=== PATIENT | female | born 1950 | race Caucasian/White ===

== ENCOUNTER 2018-07-19 11:29 | Inpatient (IN) | payer OTHER ==
[~2018-07-19] VITALS: Ht 172.7 cm; Wt 74.6 kg
[2018-07-19] VITALS (15 sets, daily range): BP systolic 125–155; BP diastolic 74–89; Ht 172.7 cm; Wt 74.6 kg
--- NOTE | ~2018-07-19 | HEMODYNAMI ---
PATIENT:GREGG ESPINO MEDICAL RECORD: [id number] : 52 [facility] TigreT03RUST# [id number] ADMISSION DATE: 07/19/18 Generatedon:07/19/201816:35 Patient name: GREGG ESPINO Patient #: [id number] SSN: DO B: 1950 Date of study: 07/19/2018 Page: Of Hemodynamic Procedure Report Patient Data Patient Demographics Procedure consent was obtained First Name: GREGG Gender: Female Last Name: SRINIVAS : 1950 [facility] Initial: GERDA Age: 67 year(s) Patient #: [id number] Race: Unknown Additional ID: [id number] Contact details Address: [address] [place] [address] State: [place] City: [place] Zip code: [address] Past Medical History Allergies: No known allergies Admission Admission Data Admission Date: 07/19/2018 Admission Time: 13:09 Admit Source: Transfer acute care facility Room #: D.T03 Weight (lbs.): 170.2 Weight (kg.): 77.2 Lab Results Lab Result Date: 07/19/2018 Lab Result Time: 12:10 Biochemistry Name Units Result Min Max BUN mg/dl 16 --(---*)-- 7 18 Creatinine mg/dl 0.8 --(-*--)-- 0.6 1.3 Troponin l ng/ml 21.4 --(----)-* 0 0.06 CBC Name Units Result Min Max Hematocrit % 40.3 -*(----)-- 42 54 Hemoglobin g/dl 13.5 --(*---)-- 13.5 17.5 Procedure Procedure Types Cath Procedure Diagnostic Procedure [facility] w/Coronaries PCI Procedure Coronary Stent Coronary Stent Initial Procedure Description Procedure Date Procedure Date: 07/19/2018 Procedure Start Time: 15:46 Procedure End Time: 15:58 Procedure Staff Name Function Laura Navarro RT Monitor Hector Romeo MD Performing Physician Mahamed Ludwig RT Scrub [facility] RT Monitor Rose Mary Mccann RN Nurse Procedure Data Cath Procedure Fluoroscopy Diagnostic fluoroscopy Total fluoroscopy Time: 2.8 time: 2.8 min min Diagnostic fluoroscopy Total fluoroscopy dose: dose: 171.83 mGy 171.83 mGy Contrast Material Contrast Material Type Amount (ml) Isovue 300 58 Entry Location Entry Primary Successful Side Size Upsize Upsize Entry Closure Rico ccessful Closure Location (Fr) 1 (Fr) 2 (Fr) Remarks Device Remarks Radial Right 6 Fr Mechanical artery Short Compression Estimated blood loss: 10 ml Diagnostic catheters Device Type Used For End Catheter Placement DIAGNOSTIC [place] 110cm 5 Procedure Fr catheter ([id number]) Procedure Complications No complications Procedure Medications Medication Administration Route Dosage 0.9% NaCl I.V. 100 ml/hr Oxygen etCO2 Nasal cannula 2 l/min Lidocaine 2% added to field 20 Heparin Flush Bag added to field 2 bags (1000units/500ml NS) Radial Cocktail added to field 1 syringe (Verapomil 2mg/Nitro 400mcg/Heparin 1500units) Versed I.V. 2 mg Fentanyl I.V. 50 mcg Versed I.V. 1 mg Fentanyl I.V. 25 mcg Heparin Bolus I.V. 2000 units Hemodynamics Rest HGB: 13.5 (g/dl) Heart Rate: 83 (bpm) Snapshots Pre Cath Intra NCS Post Cath Vital Signs Time Heart Resp SPO2 etCO2 NIBP (mmHg) Rhythm Pain Sedation Rate (ipm) (%) (mmHg) Status Level (bpm) 15:40:34 82 10 100 0 133/76(103) NSR 0 (11) 10(A) , No pain 15:44:48 82 16 97 0.7 109/71(87) NSR 0 (11) 10(A) , No pain 15:49:06 85 15 98 0 71/40(55) NSR 0 (11) 10(A) , No pain 15:53:12 82 12 98 1.5 77/48(69) NSR 0 (11) 9(A) , No pain 15:57:18 85 11 99 2.2 90/53(68) NSR 0 (11) 10(A) , No pain 16:15:17 85 2 99 1.5 No Cuff NSR 0 (11) 10(A) , No pain Medications Time Medication Route Dose Verified Delivered Reason Not es Effectiveness by by 15:39:44 0.9% NaCl I.V. 100 Hector Rose Mary used for ml/hr Agueda Mccann supervisor [employer] 15:39:51 Oxygen etCO2 2 l/min Hector Rose Mary used for Nasal Agueda Mccann procedure cannula RN 15:39:57 Lidocaine 2% added 20ml Hector Young used for to vial Agueda Romeo MD procedure field 15:40:04 Heparin Flush added 2 bags Hector Young used for Bag to Agueda Romeo MD procedure (1000units/500ml field NS) 15:40:09 Radial Cocktail added 1 Hector Hector used for (Verapomil to syringe Agueda Romeo MD procedure 2mg/Nitro field 400mcg/Hepari 15:45:26 Versed I.V. 2 mg Hector Rose Mary for sedation Agueda Mccann RN 15:45:45 Fentanyl I.V. 50 mcg Hector Rose Mary for sedation Agueda Mccann RN 15:49:15 Versed I.V. 1 mg Hector Rose Mary for sedation Agueda Mccann RN 15:49:21 Fentanyl I.V. 25 mcg Hector Rose Mary for sedation Agueda Mccann RN 15:50:54 Heparin Bolus I.V. 2000 Hector Rose Mary for sami ified units Agueda Mccann anticoagulation with Dr. ALEJANDRO Romeo Procedure Log Time Note 15:06:58 Informed consent obtained and on chart 15:07:03 Admit Source: Transfer acute care facility 15:07:09 Diagnostic Cath status Elective 15:07:17 Time tracking: Regular hours (M-F 7:00 - 5:00) 15:07:20 Plan of Care:Hemodynamics will remain stable., Cardiac rhythm will remain stable., Comfort level will be maintained., Respiratory function will remain adequate., Patient/ family verbilizes understanding of procedure., Procedure tolerated without complication., Recovers from procedure without complications.. 15:07:24 H&P Date Dictated: 07/19/2018 Within 30 days and on chart.. 15:08:01 Lab Result : Hemoglobin 13.5 g/dl 15:08:01 Lab Result : Hematocrit 40.3 % 15:08:01 Lab Result : BUN 16 mg/dl 15:08:01 Lab Result : Creatinine 0.8 mg/dl 15:08:02 Lab results completed and on chart. 15:08:10 Patient Weight : 170.2 lbs 15:08:39 Lab Result : Troponin l 21.4 ng/ml 15:17:55 Rose Mary Mccann RN sent for patient. Start room use. 15:28:59 Patient received from ED to CCL 3 Alert and oriented. Tansferred to table in Supine position. 15:29:00 Warm blankets applied, and nena hugger turned on for patient comfort. 15:29:01 Correct patient and procedure confirmed by team. 15:29:02 ECG and BP/O2 sat monitors applied to patient. 15:29:03 Pre-procedure instructions explained to patient. 15:29:04 Pre-op teaching completed and patient verbalized understanding. 15:29:05 Family in waiting room. 15:29:08 Patient NPO since Breakfast. 15:29:15 Patient allergic to No known allergies 15:39:17 Vital chart was started 15:39:23 Rhythm: sinus rhythm 15:39:25 Full Disclosure recording started 15:39:27 Patient diabetic? No. 15:39:29 Patient not . Patient has had hysterectomy. 15:39:31 Previous problem with sedation/anesthesia? No ? 15:39:33 Snore? Yes 15:39:34 Sleep apnea? No 15:39:35 Deviated septum? No 15:39:36 Opens mouth fully? Yes 15:39:37 Sticks out tongue? Yes 15:39:39 Airway obstruction? No ? 15:39:43 Dentures? Yes out 15:39:44 0.9% NaCl 100 ml/hr I.V. was administered by Rose Mary Mccann RN; used for procedure; 15:39:46 Modified Issac's test Ulnar < 7 seconds 15:39:48 Patient pain scale 0/10 ?. 15:39:51 Oxygen 2 l/min etCO2 Nasal cannula was administered by Rose Mary Mccann RN; used for procedure; 15:39:55 IV patent on arrival in right antecubital with 0.9% NaCl at [facility]. 15:39:57 Lidocaine 2% 20ml vial added to field was administered by Hector Romeo MD; used for procedure; 15:40:00 Alarms reviewed by R. N. 15:40:00 Right Radial & Right Groin area was prepped with chlora-prep and draped in sterile fashion 15:40:01 Sharps counted by scrub and verified by R.N. 15:40:04 Heparin Flush Bag (1000units/500ml NS) 2 bags added to field was administered by Hector Romeo MD; used for procedure; 15:40:06 Baseline sample Acquired. 15:40:09 Radial Cocktail (Verapomil 2mg/Nitro 400mcg/Heparin 1500units) 1 syringe added to field was administered by Hector Romeo MD; used for procedure; 15:40:24 Use device set Radial Dx or PCI 15:40:25 ACIST Syringe (24176) opened to sterile field. 15:40:26 Bag Decanter (2001S) opened to sterile field. 15:40:27 ACIST Manifold (31983) opened to sterile field. 15:40:27 ACIST Hand Control (46638) opened to sterile field. 15:40:28 Tegaderm 4 x 4 (1626W) opened to sterile field. 15:40:29 DIAGNOSTIC WIRE .035 260cm J wire (050383) opened to sterile field. 15:40:29 Medline Cath Pack ([id number]) opened to sterile field. 15:40:30 MBrace Wrist Support ([id number]) opened to sterile field. 15:40:31 SHEATH 6FR Slender (74-2480) opened to sterile field. 15:43:52 Final Timeout: patient, procedure, and site verified with staff and physician. All members of the team are in agreement. 15:43:52 --------ALL STOP TIME OUT------ 15:43:55 Right Radial & Right Groin site verified by team. 15:43:59 Maximum allowable Isovue 300 dose 300ml. Physician notified. (300ml for normal creatinines. For patients with creatinine of 1.7 or higher multiply weight(kg) x 5 divided by creatinine.) 15:44:03 Fire Safety Assessment: A--An alcohol-based skin anteseptic being used preoperatively., C--Open oxygen or nitrous oxide is being used., D--An ESU, laser, or fiber-optic light is being used. 15:44:07 Physical assessment completed. ASA score P 2 - A patient with mild systemic disease as per Hector Romeo MD. 15:44:10 Sedation plan: IV Moderate Sedation Medication:Versed, Fentanyl 15:45:26 Versed 2 mg I.V. was administered by Rose Mary Mccann RN; for sedation; 15:45:45 Fentanyl 50 mcg I.V. was administered by Rose Mary Mccann RN; for sedation; 15:46:02 Procedure started. 15:46:04 Zero performed for pressure channel P1 15:46:32 Local anesthetic to right radial artery with Lidocaine 2% by Hector Romeo MD.INITIAL ACCESS ONLY 15:47:27 A 6 Fr Short sheath was inserted into the Right Radial artery 15:47:53 A DIAGNOSTIC [place] 110cm 5 Fr catheter ([id number]) was advanced over the wire and used for Procedure. 15:48:04 LV gram done using JEWELL 15:48:08 Injector settings: Ml/sec: 7, Volume: 15, 15:49:15 Versed 1 mg I.V. was administered by Rose Mary Mccann RN; for sedation; 15:49:21 Fentanyl 25 mcg I.V. was administered by Rose Mary Mccann RN; for sedation; 15:49:22 EF : 50 % 15:50:01 YENY assess EtCO2 d/t monitor malfunction 15:50:11 LCA angiography performed. 15:50:12 RCA angiography performed. 15:50:38 Catheter exchanged over wire. 15:50:45 GUIDE 6FR XBLAD 4.0 catheter ([id number]) opened to sterile field. 15:50:54 Heparin Bolus 2000 units I.V. was administered by Rose Mary Mccann RN; for anticoagulation; verified with Dr. Romeo 15:51:22 6 Fr XBLAD 4 guide catheter was inserted over the wire 15:52:53 CHOICE ES 182 wire advanced. 15:54:03 Place stent Inflation Number: 1 A INTEGRITY RX 3.0 x 18 stent ([id number]) was prepped and advanced across the Mid LAD. The stent was deployed at 15 JAM for 0:10 (min:sec). 15:54:24 Stent catheter was removed intact over wire. 15:54:25 Wire removed. 15:54:27 Guide catheter removed. 15:54:42 TR BAND Standard ([id number]) opened to sterile field. 15:54:57 Procedure ended.(Physican Out) 15:55:10 Sheath removed intact; hemostasis achieved with Mechanical Compression to the Right Radial artery. 15:55:24 Fluoroscopy time 02.80 minutes. 15:55:34 Fluoroscopy dose: 171.83 mGy 15:55:34 Flurop Dose total: 171.83 15:55:52 Contrast amount:Isovue 300 58ml. 15:55:53 Sharps counted by scrub and verified by R.N. 15:55:55 TR band inflated with 10cc of air. 15:56:00 Post-procedure physical assessment completed. ASA score P 2 - A patient with mild systemic disease as per Hector Romeo MD. 15:56:03 Post procedure rhythm: sinus rhythm 15:56:05 Estimated blood loss: 10 ml 15:56:06 Post procedure instruction explained to patient.Patient verbalizes understanding. 15:56:11 Patient needs reinforcement of post procedure teaching. 15:56:43 Procedure type changed to Cath procedure, Diagnostic procedure, LHC, LHC w/Coronaries, PCI procedure, Coronary Stent, Coronary Stent Initial 15:58:17 Procedure and supply charges have been captured, reviewed, submitted and are correct. 15:58:19 Procedure Complication : No complications 15:58:21 Vital chart was stopped 15:58:22 See physician's report for complete and final results. 15:58:24 Report given to ICU. 15:58:26 Patient transfered to ICU with Bed. 15:58:28 Procedure ended. 16:15:47 Pt. being held and monitored on table due to ICU bed not available at this time. 16:35:23 End room use (Document Last) Intervention Summary Intervention Notes Time ActionType Lesion and Equipment Action# Pressure Duration Attributes Used 15:54:03 Place stent Mid LAD INTEGRITY RX 1 15 00:10 3.0 x 18 stent ([id number]) Device Usage Item Name Manufacture Quantity Catalog Hospital Part Current Minima l Lot# / Number Charge Number Stock Stock Serial# Code ACIST Acist 1 55263 826729 066801 441110 20 Syringe Medical (47436) Systems Inc Bag Decanter Microtek 1 239006 40828 177849 5 () Medical Inc. ACIST Hand Acist 1 11306 362341 758207 286912 5 Control Medical (89518) Systems Inc ACIST Acist 1 03032 090195 696472 495047 5 Manifold Medical (88646) Systems Inc Tegaderm 4 x 3M 1 1626W 928987 733278 675574 5 4 (1626W) Medline Cath Medline 1 [id number] 154625 85747 766767 5 Pack ([id number]) DIAGNOSTIC St Nikolai 1 534090 977820 609569 204560 30 WIRE .035 260cm J wire (431348) MBrace Wrist Advanced 1 140-0250-00 270713 06964 594588 5 Support Vascular ([id number]) Dynamics SHEATH 6FR Terumo 1 [id number] 651562 385506 805093 5 Slender (80-1060) DIAGNOSTIC Terumo 1 40-5013 760570 539420 436380 5 [place] 110cm 5 Fr catheter (510165) GUIDE 6FR Cardinal 1 11154748 352713 663012 467167 3 XBLAD 4.0 Health catheter (40875702) INTEGRITY RX Medtronic 1 [id number] 500681 396255 464732 5 [id number] 3.0 x 18 stent ([id number]) TR BAND Terumo 1 [id number] 598044 533058 094647 40 Standard ([id number]) Signature Audit [place] [employer] Time Signature Unsigned Intra-Procedure 07/19/2018 Amirah Ludwig RT(R) 4:00:18 PM RT(R) 07/19/2018 4:13:45 PM Intra-Procedure 07/19/2018 Mahamed Ludwig 4:35:34 PM RT(R) Signatures Monitor : Laura Signature : Counts RT Date : Time : Monitor : Amirah Johnson Signature : RT Date : Time : [place] [id number] [place] [address]
[2018-07-19] MEDS ORDERED: SYNTHROID25 MCG PO (11:33)
[2018-07-19] MEDS ORDERED: ATIVAN0.5 MG PO (11:33)
[2018-07-19] MEDS ORDERED: JANUVIA25 MG PO (11:33)
[2018-07-19] MEDS ORDERED: GLUCOPHAGE500 MG PO (11:33)
[2018-07-19] MEDS ORDERED: LISINOPRIL (11:34)
[2018-07-19 12:16] LABS: BASOPHILS 0.2 % (0-2); EOSINOPHILS 0.6 % (0-7); HEMATOCRIT 40.3 % (36.0-48.0); HEMOGLOBIN 13.5 g/dL (12-16); IMMATURE GRANULOCYTES 0.3 % (0-5); LYMPHOCYTES 17.1 % (15-50); MCH 28.1 pg (26.0-34.0); MCHC 33.5 g/dL (31.0-37.0); MCV 83.8 fL (80.0-100.0); NEUTROPHILS 76.8 % (40-80); PLATELET COUNT 221 10x3/uL (130-400); RBC 4.81 10x6/uL (4.00-5.40); RDW 12.7 % (11.5-14.5)
[2018-07-19 12:30] LABS: INR 1.22 (0.85-1.17); PROTIME 14.9 SECONDS (11.6-15.0)
[2018-07-19 12:31] LABS: ALBUMIN 3.2 g/dL (3.4-5.0); ALKALINE PHOSPHATASE 115 U/L (46-116); ALT (SGPT) 13 U/L (10-68); BILIRUBIN - TOTAL 0.42 mg/dL (0.2-1.3); CALC OSMOLALITY 288 mosm/kg (275-300); CALCIUM 8.7 mg/dL (8.5-10.1); CHLORIDE - SERUM 99 mmol/L (98-107); CREATININE - SERUM 0.8 mg/dL (0.6-1.3); GLUCOSE 379 mg/dL (74-106); POTASSIUM - SERUM 4.3 mmol/L (3.5-5.1); PROTEIN - SERUM 7.3 g/dL (6.4-8.2); SODIUM 136 mmol/L (136-145); UREA NITROGEN 16 mg/dL (7-18); eGFR NON AFRICAN AMERICAN 76 mL/min (90-120)
[2018-07-19 12:46] LABS: CKMB 20.6 U/L (0.0-3.6); CREATINE KINASE 233 UL (21-215); MAGNESIUM - SERUM 1.9 mg/dL (1.8-2.4)
[2018-07-19 12:50] LABS: TROPONIN-I 21.447 ng/mL (0.000-0.060)
[2018-07-19 13:29] LABS: APTT > 200.0 SECONDS (22.8-39.4)
--- NOTE | 2018-07-19 13:54 | MORECARE ---
CASE MANAGEMENT DISCHARGE SUMMARY PATIENT: GREGG ROCHA UNIT: [id number] ADM DATE: 07/19/18 AGE: 67 : 52 SEX: F ROOM/BED: D.T03 AUTHOR: MARCEL,DOC PHYSICIAN: REFERRING PHYSICIAN: AGUSTIN ISIDRO MD DATE OF SERVICE: 07/19/18 Discharge Plan Patient Name: GREGG ROCHA Facility: [facility]:[place] : 1950 Planned Disposition: Home Anticipated Discharge Date: 07/21/18 Discharge Date: Expected LOS: 2 Initial Reviewer: [email or web address] Initial Review Date: 07/19/2018 Generated: 07/19/18 2:54 pm DCP- Discharge Planning Updated by [email or web address]: Francesca Wagner on 07/19/18 12:[address] Patient Name: GREGG ROCHA Admission Status: ER Accout number: [id number] Admission Date: 07-19-2018 : 1950 Admission Diagnosis: Attending: JOHAN ISIDRO Current LOS: 1 Anticipated DC Date: 07-21-2018 Planned Disposition: Home Primary Insurance: [employer] Discharge Planning Comments: CM met with patient,her , and her granddaughter to complete initial dc planning assessment. CM educated patient and family on the CM role and verbal consent given by patient to complete assessment. Patient lives at home with her independently and still works as a cg/sitter for others. At discharge patient plans to return home and feels this is a safe discharge. CM discussed availability of home health, rehab services, and medical equipment. Patient denied known discharge needs at this time. CM will continue to follow and will assist as needed with dc plans/needs. Side Splitter: Francesca Wagner RN, [facility] DCPIA - Discharge Planning Initial Assessment Updated by [email or web address]: Francesca Wagner on 07/19/18 1:49 pm * Is the patient Alert and Oriented? Yes * How many steps to enter\exit or inside your home? * PCP Dr. Oliver in [place] * Pharm[facility] in [place] * Preadmission Environment Home with Family * ADLs Independent * Equipment None * List name and contact numbers for known caregivers / representatives who currently or will assist patient after discharge: Melanie Marcum - granddaughter - [phone] Beau Rocha - sposue- [phone] * Verbal permission to speak to the caregivers and representatives has been obtained from the patient. Yes * Community resources currently utilized None * Additional services required to return to the preadmission environment? No * Can the patient safely return to the preadmission environment? Yes * Has this patient been hospitalized within the prior 30 days at any hospital? No Patient Name: GREGG ROCHA Page 37198 at 1354 All edits/amendments must be made on the electronic document DICTATION DATE: 07/19/18 1354 COMPANION: RONNI 07/19/18 1354 RPT#: [id number] DC DATE: STATUS: ADM IN [facility] [address] [place] [address] END OF REPORT
[2018-07-20] VITALS (8 sets, daily range): BP systolic 132–149; BP diastolic 81–93
[2018-07-20 00:48] LABS: HEMATOCRIT 36.7 % (36.0-48.0); HEMOGLOBIN 12.3 g/dL (12-16); MCH 28.1 pg (26.0-34.0); MCHC 33.5 g/dL (31.0-37.0); MCV 83.8 fL (80.0-100.0); MEAN PLATELET VOLUME 9.2 fL (7.4-10.4); RBC 4.38 10x6/uL (4.00-5.40); RDW 12.7 % (11.5-14.5); WBC 7.3 10x3/uL (4.8-10.8)
--- NOTE | 2018-07-20 09:27 | HP ---
PATIENT: GREGG ROCHA MEDICAL RECORD: [id number] ACCOUNT: [id number] LOCATION:[facility] D.2305 : 52 ADMISSION DATE: 07/19/18 PCP: SHERRILL BENITES MD HISTORY AND PHYSICAL EXAMINATION DIAGNOSES: 1. Acute anterior myocardial infarction. 2. Coronary artery disease. 3. Noninsulin dependent diabetes HISTORY OF PRESENT ILLNESS: Mrs. Rocha has no history of ischemic heart disease. She awoke this morning with severe chest pain, presented to [facility] was diagnosed with an acute anterolateral myocardial infarction, underwent TNKase. She is pain free now. Her EKG is markedly improved. PHYSICAL EXAMINATION: GENERAL APPEARANCE: Well-nourished, well-developed, appears stated age. Level of distress, comfortable. PSYCHIATRIC: Mental status, alert, normal affect. Orientation, oriented to time, place and person. EYES: Lids and conjunctiva, noninjected. No discharge, no pallor. ENT: Lips, teeth, gums, normal dentition. Oropharynx, no cyanosis, no pallor. NECK: Carotid arteries, bilateral normal upstroke, no bruits, no thrills. JUGULAR VEINS: No jugular venous pressure or distention. CERVICAL LYMPH NODES: Nontender, nonenlarged. THYROID: Not enlarged. Nontender. No nodules. LUNGS: Respiratory effort, unlabored. CHEST: Normal curvature. No thoracic deformity. No chest wall tenderness. Percussion, resonant. Auscultation, clear. No wheezes, no rales, no rhonchi. CARDIOVASCULAR: Precordial exam, nondisplaced. No heaves or pericardial thrills. Rate and rhythm, regular. Heart sounds, normal S1, normal S2. No S3, no gallop, no rub. Systolic murmur, not heard. Diastolic murmur, not heard. EXTREMITIES: No cyanosis, no edema. Peripheral pulses, full and equal in all extremities, except as noted. No bruits appreciated. ABDOMEN: Soft, nondistended. Normal aorta. No bruit. Nontender. No masses. Liver, nontender, no hepatomegaly. Spleen, nontender, no splenomegaly. MUSCULOSKELETAL: No joint tenderness. No joint swelling. No erythema. NEUROLOGICAL: Normal gait, normal strength, normal tone. SKIN: Warm and dry. OVERALL IMPRESSION: Acute anterolateral myocardial infarction. At this time, she is stable. We will continue the heparin and nitro, load her with Plavix, proceed with coronary angiography later today. TRANSINT:[id number] Voice Confirmation ID: [id number] DOCUMENT ID: [id number] HISTORY AND PHYSICAL [id number] GREGG ROCHA, AGUSTIN ALFARO at 0927 CC: [id number] DICTATION DATE: 07/19/18 1147 RADAR REPAIRER: 07/19/18 1204 ADM IN [place] [address] [place] [address]
--- NOTE | 2018-07-20 09:28 | OP ---
PATIENT NAME: GREGG ESPINO MEDICAL RECORD: [id number] :52 LOCATION:D.ICU D.2305 ADMISSION DATE:07/19/18 SURGEON: AGUSTIN ISIDRO MD DATE OF OPERATION: 07/19/2018 PROCEDURES: 1. PTCA and stent, LAD. 2. Left heart catheterization. 3. Selective coronary angiography. 4. Left ventriculogram. INDICATION: Acute anterior myocardial infarction. DESCRIPTION OF PROCEDURE: After informed consent was obtained with detailed description of risks and benefits as well as alternative therapies, the patient elected to proceed with angiogram and angioplasty. The right radial area was prepped and draped in normal sterile fashion. The right radial artery was cannulated via modified Seldinger technique with placement of 6-Lao sheath. All catheters were exchanged through this sheath. FINDINGS: Left ventriculogram performed in standard 30-degree JEWELL view reveals good cardiac wall motion throughout all segments. Overall ejection fraction is estimated at 55% to 60%. SELECTIVE CORONARY ANGIOGRAPHY: 1. Left main is with no significant angiographic disease. 2. Left anterior descending has 90% stenosis proximally. This is the culprit for the acute myocardial infarction. 3. Left circumflex has 85% to 90% stenosis proximally. 4. Right coronary has 50% stenosis in the mid vessel, otherwise only mild irregularities. PTCA AND STENT OF THE LAD: The stent used was 3.0 x 18 mm Integrity. Result was 0% residual stenosis. OVERALL IMPRESSION: Successful PTCA and stent of the LAD, going from 90% initial stenosis to 0% residual. PLAN: PTCA and stent of the left circumflex in the near future. TRANSINT:[id number] Voice Confirmation ID: [id number] DOCUMENT ID: [id number] AGUSTIN ISIDRO MD at 0928 CC: [id number] DICTATION DATE: 07/19/18 1559 PARTRIDGE FARMER: 07/19/18 1828 ADM IN [place] [address] [place] [address]
--- NOTE | 2018-07-21 09:02 | MORECARE ---
CASE MANAGEMENT DISCHARGE SUMMARY PATIENT: GREGG ROCHA UNIT: [id number] ADM DATE: 07/19/18 AGE: 67 : 52 SEX: F ROOM/BED: D.2305 AUTHOR: MARCEL,DOC PHYSICIAN: REFERRING PHYSICIAN: AGUSTIN ISIDRO MD DATE OF SERVICE: 07/21/18 Discharge Plan Patient Name: GREGG ROCHA Facility: [facility]:[place] : 1950 Planned Disposition: Home Anticipated Discharge Date: 07/21/18 Discharge Date: 07/20/2018 Expected LOS: 2 Initial Reviewer: [email or web address] Initial Review Date: 07/19/2018 Generated: 07/21/18 10:02 am DCP- Discharge Planning Updated by [email or web address]: Francesca Wagner on 07/19/18 12:[address] Patient Name: GREGG ROCHA Admission Status: ER Accout number: [id number] Admission Date: 07-19-2018 : 1950 Admission Diagnosis: Attending: JOHAN ISIDRO Current LOS: 1 Anticipated DC Date: 07-21-2018 Planned Disposition: Home Primary Insurance: [employer] Discharge Planning Comments: CM met with patient,her , and her granddaughter to complete initial dc planning assessment. CM educated patient and family on the CM role and verbal consent given by patient to complete assessment. Patient lives at home with her independently and still works as a cg/sitter for others. At discharge patient plans to return home and feels this is a safe discharge. CM discussed availability of home health, rehab services, and medical equipment. Patient denied known discharge needs at this time. CM will continue to follow and will assist as needed with dc plans/needs. Fourth Mate: Francesca Wagner RN, [facility] DCPIA - Discharge Planning Initial Assessment Updated by [email or web address]: Francesca Wagner on 07/19/18 1:49 pm * Is the patient Alert and Oriented? Yes * How many steps to enter\exit or inside your home? * PCP Dr. Oliver in [place] * Pharmacy [facility] in [place] * Preadmission Environment Home with Family * ADLs Independent * Equipment None * List name and contact numbers for known caregivers / representatives who currently or will assist patient after discharge: Melanie Marcum - granddaughter - [phone] Beau Rocha - sposue- [phone] * Verbal permission to speak to the caregivers and representatives has been obtained from the patient. Yes * Community resources currently utilized None * Additional services required to return to the preadmission environment? No * Can the patient safely return to the preadmission environment? Yes * Has this patient been hospitalized within the prior 30 days at any hospital? No Last DP export: 07/19/18 12:54 p Patient Name: GREGG ROCHA Page 67012 at 0902 All edits/amendments must be made on the electronic document DICTATION DATE: 07/21/18901 MACADAM RAKER: RONNI 07/21/18901 RPT#: [id number] DC DATE:07/20/18 STATUS: DIS IN [facility] [address] [place] [address] END OF REPORT
--- NOTE | 2018-07-22 15:03 | EC ---
PATIENT:GREGG ESPINO DATE OF SERVICE: 07/19/18 SEX: F MEDICAL RECORD: [id number] DATE OF : 52 LOCATION:[facility] D230 AGE OF PATIENT: 67 ADMISSION DATE: 07/19/18 REFERRING PHYSICIAN: INTERPRETING PHYSICIAN: AGUSTIN ROMEO MD ECHOCARDIOGRAM REPORT ECHO CHARGES 4 ECHO COMPLETE Date: 07/19/18 CLINICAL DIAGNOSIS: VT ECHOCARDIOGRAPHIC MEASUREMENTS (adult normal given) AC root (d.<3.7cm) 3.0 cm LV Septum d (<1.2 cm> 1.1 cm Valve Excursion 1.4 cm LV Septum (systole) 1.4 cm Left Atria (s.<4.0cm> 3.6 cm LVPW d(<1.2cm) 1.8 cm RV (d.<2.3cm) 2.7 cm LVPW (sytole) 1.6 cm LV diastole(<5.6CM) 5.4 cm MV E-F(>70mm/sec) cm LV systole 4.1 cm LVOT Diameter 1.7 cm MV exc.(>10mm) cm Est.ejection fraction (50-75%) % DOPPLER: LVIT cm/sec A 111 cm/sec E 59.0 cm/sec LA cm/sec RVSP 17 mmHg LVOT 116 cm/sec AOP1/2T m/s Asc. Ao 124 cm/sec RVOT cm/sec RA cm/sec PA cm/sec AV Gradient Peak 6.16 mmHg AV Mean 3.44 mmHg AV Area 2.1 cm MV Gradient Peak 7.32 mmHg MV Mean 2.12 mmHg MV Area cm COMMENTS: Relations Liaison: Jennifer HARTMANN Biomedical Equipment Specialist: 1 Dr. Romeo TAPE# PACS Pericardial Effusion N DATE OF SERVICE: FINDINGS: 1. Left ventricular chamber size is within normal limits. Left ventricular systolic function is preserved at 50%. There is anteroapical hypokinesis. 2. Left atrium, right atrium, and right ventricle chamber sizes are within normal limit. 3. Valvular structures have normal structure and motion. 4. Doppler interrogation reveals [id number] aortic insufficiency. No other valvular insufficiency or stenosis. ECHOCARDIOGRAM REPORT [id number] GREGG ESPINO 5. No evidence of pericardial effusion or left ventricular thrombus. TRANSINT:[id number] Voice Confirmation ID: [id number] DOCUMENT ID: [id number] AGUSTIN ROMEO MD at 1503 CC: [id number] DICTATION DATE: 07/20/18 1007 SALES ADMINISTRATION SPECIALIST: 07/20/18 1301 DIS IN 07/20/18 [id number] [place] [address]
--- NOTE | 2018-07-22 15:03 | DS ---
PATIENT:GREGG ESPINO :52 MEDICAL RECORD: [id number] DISCHARGE SUMMARY ADMISSION DATE: 07/19/18 DISCHARGE DATE: 07/20/18 DISCHARGE DIAGNOSES: 1. Acute anterior myocardial infarction. 2. PTCA and stent, LAD. 3. Coronary artery disease. 4. Hypertension. 5. Hyperlipidemia. HOSPITAL COURSE: Mrs. Espino presents with acute anterior myocardial infarction, underwent TNK in [place], had reperfusion. She underwent cardiac catheterization here revealing critical disease of LAD and circumflex. She underwent successful PTCA and stent of the LAD. She was discharged home with the addition of aspirin, Plavix, Pravachol, and Lopressor to her medical regimen. She will follow up in 2 days for PTCA and stent of the left circumflex. TRANSINT:[id number] Voice Confirmation ID: [id number] DOCUMENT ID: [id number] AGUSTIN ISIDRO MD at 1503 CC: [id number] DICTATION DATE: 07/20/18930 RECRUITER MANAGER: 07/21/18 0022 DIS IN 07/20/18 [facility] [address] [place] [address]
== END 2018-07-20 11:15 | disposition home or self-care (01) | DRG 249 ==
LOC: D.ER 11:29 → EDBD 11:29 → D.EDHOLD 13:09 → D.ICU 13:09
PROVIDERS: Family Medicine; ADMIT Internal Medicine Interventional Cardiology; ATTEND Internal Medicine Interventional Cardiology
PROC: B2151ZZ Fluoroscopy of Left Heart using Low Osmolar Contrast (ICD-10-PCS; 2018-07-19)
PROC: 4A023N7 Measurement of Cardiac Sampling and Pressure, Left Heart, Percutaneous Approach (ICD-10-PCS; 2018-07-19)
PROC: 02703DZ Dilation of Coronary Artery, One Artery with Intraluminal Device, Percutaneous Approach (ICD-10-PCS; principal; 2018-07-19 15:17)
PROC: B2111ZZ Fluoroscopy of Multiple Coronary Arteries using Low Osmolar Contrast (ICD-10-PCS; 2018-07-19 15:17)
DX: I21.09 ST elevation (STEMI) myocardial infarction involving other coronary artery of anterior wall (principal); I25.10 Atherosclerotic heart disease of native coronary artery without angina pectoris; E11.9 Type 2 diabetes mellitus without complications; I10 Essential (primary) hypertension; E78.5 Hyperlipidemia, unspecified

== ENCOUNTER 2018-07-22 09:21 | Outpatient (CLI) | payer OTHER ==
[~2018-07-22] VITALS: Ht 172.7 cm; Wt 71.8 kg
--- NOTE | ~2018-07-22 | HEMODYNAMI ---
PATIENT:GREGG ESPINO MEDICAL RECORD: [id number] : 52 LOCATION:[facility] ADMISSION DATE: 07/22/18 Generatedon:07/22/201813:19 Patient name: GREGG ESPINO Patient #: [id number] SSN: DO B: 1950 Date of study: 07/22/2018 Page: Of Hemodynamic Procedure Report Patient Data Patient Demographics Procedure consent was obtained First Name: GREGG Gender: Female Last Name: SRINIVAS : 1950 [facility] Initial: GERDA Age: 67 year(s) Patient #: [id number] Race: Unknown Additional ID: [id number] Contact details [address]: [address] [place] [address] State: [place] City: [place] Zip code: [address] Past Medical History Allergies: No known allergies Admission Admission Data Admission Date: 07/22/2018 Admission Time: 9:21 Height (in.): 67.72 BSA: 1.85 (m2) Height (cm.): 172 BMI: 24.27 (kg/m2) Weight (lbs.): 158.31 Weight (kg.): 71.81 Lab Results Lab Result Date: 07/22/2018 Lab Result Time: 0:00 Biochemistry Name Units Result Min Max BUN mg/dl 15 --(--*-)-- 7 18 Creatinine mg/dl 1.2 --(---*)-- 0.6 1.3 CBC Name Units Result Min Max Hematocrit % 37.4 *-(----)-- 42 54 Hemoglobin g/dl 12.4 *-(----)-- 13.5 17.5 Procedure Procedure Types Cath Procedure Diagnostic Procedure Sedation Charges Moderate Sedation up to 15 minutes PCI Procedure Coronary Stent Coronary Stent Initial Coronary Stent Additional Procedure Description Procedure Date Procedure Date: 07/22/2018 Procedure Start Time: 13:02 Procedure End Time: 13:16 Procedure Staff Name Function Hector Romeo MD Performing Physician Amirah Johnson RT Monitor Mahamed Ludwig RT Scrub Rose Mary Ramy RN Nurse Procedure Data Cath Procedure Fluoroscopy Diagnostic fluoroscopy Total fluoroscopy Time: 3.6 time: 3.6 min min Diagnostic fluoroscopy Total fluoroscopy dose: 440 dose: 440 mGy mGy Contrast Material Contrast Material Type Amount (ml) Isovue 300 72 Entry Location Entry Primary Successful Side Size Upsize Upsize Entry Closure Succes sful Closure Location (Fr) 1 (Fr) 2 (Fr) Remarks Device Remarks Femoral Right 6 Fr Exoseal artery Short Estimated blood loss: 10 ml Procedure Complications No complications Procedure Medications Medication Administration Route Dosage 0.9% NaCl I.V. 100 ml/hr Oxygen etCO2 Nasal cannula 2 l/min Lidocaine 2% added to field 20 Heparin Flush Bag added to field 2 bags (1000units/500ml NS) Versed I.V. 2 mg Fentanyl I.V. 50 mcg Versed I.V. 1 mg Fentanyl I.V. 25 mcg Heparin Bolus I.V. 4000 units Nitroglycerin IC/IA I.C. 150 mcg Hemodynamics Rest BSA: 1.85 (m2) O2 Consumption: Estimated: 166.02 (ml/min) O2 Consumption indexed : Estimated:89.74 (ml/min/m) Heart Rate: 61 (bpm) Snapshots Pre Cath Intra NCS Post Cath Vital Signs Time Heart Resp SPO2 etCO2 NIBP Rhythm Pain Sedation Rate (ipm) (%) (mmHg) (mmHg) Status Level (bpm) 12:52:18 61 20 96 31.5 119/68(94) NSR 0 (11) 10(A) , No pain 12:56:28 61 18 97 35.2 96/55(68) NSR 0 (11) 10(A) , No pain 13:00:40 61 14 96 22.4 83/47(66) NSR 0 (11) 10(A) , No pain 13:04:50 60 13 98 36 84/47(58) NSR 0 (11) 9(A) , No pain 13:09:02 60 13 99 36.7 84/41(59) NSR 0 (11) 9(A) , No pain 13:13:14 60 12 98 34.5 77/43(56) NSR 0 (11) 10(A) , No pain 13:17:22 59 13 92 15.7 83/45(58) NSR 0 (11) 10(A) , No pain Medications Time Medication Route Dose Verified Delivered Reason Notes Effectiveness by by 12:51:20 0.9% NaCl I.V. 100 Hector Rose Mary used for ml/hr Agueda Mccann radiologic technologist 12:51:26 Oxygen etCO2 2 Hector Rose Mary used for Nasal l/min Agueda Mccann procedure cannula RN 12:51:32 Lidocaine 2% added 20ml Hector Hector for local to vial Agueda Romeo MD anesthetic field 12:51:37 Heparin Flush added 2 Hector Hector used for Bag to bags Agueda Romeo MD procedure (1000units/500ml field NS) 12:58:02 Fentanyl I.V. 50 Hector Rose Mary for sedation mcg Agueda Mccann RN 12:58:51 Versed I.V. 2 mg Hector Rose Mary for sedation Agueda Mccann RN 13:03:24 Versed I.V. 1 mg Hector Rose Mary for sedation Agueda Mccann RN 13:03:27 Fentanyl I.V. 25 Hector Rose Mary for sedation mcg Agueda Mccann RN 13:06:18 Heparin Bolus I.V. 4000 Hector Rose Mary for verif ied units Agueda Mccann anticoagulation with Dr. ALEJANDRO Crandall 13:10:54 Nitroglycerin I.C. 150 Hector Rose Mary for IC/IA mcg Agueda sanchez RN Procedure Log Time Note 12:37:16 Signed procedure consent form obtained from patient. 12:37:17 Time tracking: Regular hours (M-F 7:00 - 5:00) 12:37:21 Plan of Care:Hemodynamics will remain stable., Cardiac rhythm will remain stable., Comfort level will be maintained., Respiratory function will remain adequate., Patient/ family verbilizes understanding of procedure., Procedure tolerated without complication., Recovers from procedure without complications.. 12:37:23 Diagnostic Cath status Elective 12:37:36 Patient Height : 67.72 inches 12:37:41 Patient Weight : 158.31 lbs 12:37:54 Patient allergic to No known allergies 12:38:33 Rose Mary Mccann RN sent for patient. Start room use. 12:40:34 Lab Result : BUN 15 mg/dl 12:40:34 Lab Result : Creatinine 1.2 mg/dl 12:40:34 Lab Result : Hemoglobin 12.4 g/dl 12:40:34 Lab Result : Hematocrit 37.4 % 12:45:58 Patient received from Pre/Post Procedure Room to CCL 1 Alert and oriented. Tansferred to table in Supine position. 12:46:00 Warm blankets applied, and nena hugger turned on for patient comfort. 12:46:00 Correct patient and procedure confirmed by team. 12:46:00 ECG and BP/O2 sat monitors applied to patient. 12:51:08 Vital chart was started 12:51:20 0.9% NaCl 100 ml/hr I.V. was administered by Rose Mary Mccann RN; used for procedure; 12:51:26 Oxygen 2 l/min etCO2 Nasal cannula was administered by Rose Mary Mccann RN; used for procedure; 12:51:32 Lidocaine 2% 20ml vial added to field was administered by Hector Romeo MD; for local anesthetic; 12:51:37 Heparin Flush Bag (1000units/500ml NS) 2 bags added to field was administered by Hector Romeo MD; used for procedure; 12:56:51 Baseline sample Acquired. 12:56:57 Rhythm: sinus rhythm 12:56:58 Full Disclosure recording started 12:57:01 H&P Date Dictated: 07/22/2018 New H&P dictated by physician.. 12:57:02 Pre-procedure instructions explained to patient. 12:57:05 Pre-op teaching completed and patient verbalized understanding. 12:57:07 Family in patients room. 12:57:08 Patient NPO since Midnight. 12:57:10 Is patient on blood thinner?Yes 12:57:12 ACC The patient was administered the following blood thiners within the last 24 hours: ACCPlavix 12:57:13 Patient diabetic? Yes. 12:57:14 If diabetic: On Metformin? Yes 12:57:22 Previous problem with sedation/anesthesia? No ? 12:57:24 Snore? Yes 12:57:26 Sleep apnea? No 12:57:26 Deviated septum? No 12:57:27 Opens mouth fully? Yes 12:57:28 Sticks out tongue? Yes 12:57:29 Airway obstruction? No ? 12:57:32 Dentures? Yes OUT 12:57:41 Pre procedure: right dorsailis pedis pulse 2+ Normal; easily identifiable; not easily obliterated 12:57:44 Patient pain scale 0/10 ?. 12:57:51 IV patent on arrival in left forearm with 0.9% NaCl at O. 12:57:54 Lab results completed and on chart. 12:57:55 Right groin area was prepped with chlora-prep and draped in sterile fashion 12:57:56 Alarms reviewed by R. N. 12:57:56 Sharps counted by scrub and verified by R.N. 12:57:57 --------ALL STOP TIME OUT------ 12:57:58 Final Timeout: patient, procedure, and site verified with staff and physician. All members of the team are in agreement. 12:58:00 Right groin site verified by team. 12:58:02 Fentanyl 50 mcg I.V. was administered by Rose Mary Mccann RN; for sedation; 12:58:05 Maximum allowable Isovue 300 dose 300ml. Physician notified. (300ml for normal creatinines. For patients with creatinine of 1.7 or higher multiply weight(kg) x 5 divided by creatinine.) 12:58:08 Fire Safety Assessment: A--An alcohol-based skin anteseptic being used preoperatively., C--Open oxygen or nitrous oxide is being used., D--An ESU, laser, or fiber-optic light is being used. 12:58:10 Physical assessment completed. ASA score P 2 - A patient with mild systemic disease as per Hector Romeo MD. 12:58:13 Sedation plan: IV Moderate Sedation Medication:Versed, Fentanyl 12:58:17 Use device set CATH PACK 12:58:19 ACIST Syringe (44566) opened to sterile field. 12:58:19 ACIST Hand Control (68311) opened to sterile field. 12:58:19 ACIST Manifold (65840) opened to sterile field. 12:58:20 Medline Cath Pack ([id number]) opened to sterile field. 12:58:20 Bag Decanter (2002S) opened to sterile field. 12:58:21 DIAGNOSTIC WIRE .035 260cm J wire (203787) opened to sterile field. 12:58:36 SHEATH 6FR [place] (KYO674) opened to sterile field. 12:58:36 INFLATOR Merit BasixCompak (OT7553) opened to sterile field. 12:58:37 CHOICE PT Extra Support 182cm wire ([id number]) opened to sterile field. 12:58:51 Versed 2 mg I.V. was administered by Rose Mary Mccann RN; for sedation; 13:02:26 GUIDE 6FR XB 4.0 catheter ([id number]) opened to sterile field. 13:02:29 Procedure started. 13:02:32 Local anesthetic to right femoral artery with Lidocaine 2% by Hector Romeo MD.INITIAL ACCESS ONLY 13:02:45 Zero performed for pressure channel P1 13:03:09 A 6 Fr Short sheath was inserted into the Right Femoral artery 13:03:24 Versed 1 mg I.V. was administered by Rose Mary Mccann RN; for sedation; 13:03:26 6 Fr XB4 guide catheter was inserted over the wire 13:03:27 Fentanyl 25 mcg I.V. was administered by Rose Mary Mccann RN; for sedation; 13:05:11 CHOICE ES 182 wire advanced. 13:05:20 Wire advanced across lesion. 13:06:18 Heparin Bolus 4000 units I.V. was administered by Rose Mary Mccann RN; for anticoagulation; verified with Dr. Romeo 13:06:55 Place stent Inflation Number: 1 A ANA RX 2.5 x 15 stent ([id number]) was prepped and advanced across the Prox CX. The stent was deployed at 13 JAM for 0:10 (min:sec). 13:07:22 Stent catheter was removed intact over wire. 13:08:14 Wire redirected to OM. 13:09:05 Inflation number: 1 The stent balloon was then re-inflated across the 1st Ob Samanta to 11 JAM for 0:00 (min:sec). 13:09:25 Stent catheter was removed intact over wire. 13:10:54 Nitroglycerin IC/IA 150 mcg I.C. was administered by Rose Mary Mccann RN; for vasodilation; 13:13:07 Place stent Inflation Number: 2 A ANA RX 2.5 x 12 stent ([id number]) was prepped and advanced across the 1st Ob Samanta. The stent was deployed at 11 JAM for 0:00 (min:sec). 13::44 Stent catheter was removed intact over wire. 13:13:44 Wire removed. 13:13:46 Guide catheter removed. 13:13:56 EXOSEAL 6Fr (EX600) opened to sterile field. 13:14:21 Sheath removed intact; hemostasis achieved with Exoseal to the Right Femoral artery. 13:14:24 Procedure ended.(Physican Out) 13:15:37 Fluoroscopy time 03.60 minutes. 13:15:42 Flurop Dose total: 440 13:15:42 Fluoroscopy dose: 440 mGy 13:15:50 Contrast amount:Isovue 300 72ml. 13:15:51 Sharps counted by scrub and verified by R.N. 13:15:54 Post-op/insertion site Right Femoral artery dressed using a 4 x 4 and Tegaderm. 13:15:57 Post-procedure physical assessment completed. ASA score P 2 - A patient with mild systemic disease as per Hector Romeo MD. 13:16:00 Post procedure rhythm: sinus bradycardia 13:16:02 Estimated blood loss: 10 ml 13:16:03 Post procedure instruction explained to patient.Patient verbalizes understanding. 13:16:04 Patient needs reinforcement of post procedure teaching. 13:16:26 Procedure type changed to Cath procedure, Diagnostic procedure, Sedation Charges, Moderate Sedation up to 15 minutes, PCI procedure, Coronary Stent, Coronary Stent Initial, Coronary Stent Additional 13:16:47 Procedure and supply charges have been captured, reviewed, submitted and are correct. 13:16:49 Procedure Complication : No complications 13:16:51 Vital chart was stopped 13:16:51 See physician's report for complete and final results. 13:16:53 Report given to Pre/Post Procedure Room. 13:16:55 Patient transfered to Pre/Post Procedure Room with Bed. 13:16:58 Procedure ended. 13:16:58 Full Disclosure recording stopped 13:17:00 End room use (Document Last) Intervention Summary Intervention Notes Time ActionType Lesion and Equipment Used Action# Pressure Duration Attributes 13:06:55 Place stent Prox CX ANA RX 2.5 x 1 13 00:10 15 stent ([id number]) 13:09:05 Reinflate 1st Ob Samanta ANA RX 2.5 x 1 11 00:00 stent 15 stent balloon ([id number]) 13:13:07 Place stent 1st Ob Samanta ANA RX 2.5 x 2 11 00:00 12 stent ([id number]) Device Usage Item Name Manufacture Quantity Catalog Number [facility] Part Current M inimal Lot# / Charge Number Stock Stock Serial# Code ACIST Syringe Acist 1 97115 154236 948383 822782 2 0 (84470) Medical Systems Inc ACIST Hand Acist 1 01683 863384 180699 011459 5 Control Medical (97051) Systems Inc ACIST Manifold Acist 1 55333 408444 861898 441854 5 (95393) Medical Systems Inc Medline Cath Medline 1 [id number] 943598 63788 329801 5 Pack ([id number]) Bag Decanter Microtek 1 2001S 364292 58990 715563 5 (2001S) Medical Inc. DIAGNOSTIC St Inkolai 1 626945 741269 366363 752481 3 0 WIRE .035 260cm J wire (292902) SHEATH 6FR Terumo 1 SAV149 735992 480580 281917 4 0 [place] (NJF218) INFLATOR Merit Merit 1 DS4657 097993 513752 804717 1 5 VibeWrite (SV0040) CHOICE PT Butler 1 [id number] 499294 654436 941657 5 Extra Support Scientific 182cm wire ([id number]) GUIDE 6FR XB Cardinal 1 [id number] 251802 060755 496783 2 4.0 catheter Health (85261346) ANA RX 2.5 x Medtronic 1 [id number] 157686 8371565 330699 5 [id number] 15 stent ([id number]) ANA RX 2.5 x Medtronic 1 [id number] 831591 6276753 886896 5 [id number] 12 stent ([id number]) EXOSEAL 6Fr Cardinal 1 EX600 750074 824963 154326 1 0 (EX600) Health Signature Audit [place] Stage Time Signature Unsigned Intra-Procedure 07/22/2018 Amirah Johnson 1:19:45 PM RT(R) Signatures Monitor : Amirah Johnson Signature : RT Date : Time : [facility] [address] [place] [address]
[~2018-07-22 09:21] MED LIST: ATIVAN0.5 MG PO; GLUCOPHAGE500 MG PO; JANUVIA25 MG PO; LISINOPRIL; SYNTHROID25 MCG PO
[2018-07-22] MEDS ORDERED: LISINOPRIL20 MG PO (09:47)
[2018-07-22] MEDS ORDERED: PLAVIX75 MG PO (09:52)
[2018-07-22] MEDS ORDERED: METOPROLOL TART50 MG PO (09:52)
[2018-07-22] MEDS ORDERED: PRAVACHOL40 MG PO (09:52)
[2018-07-22] MEDS ORDERED: CELEXA20 MG PO (09:53)
[2018-07-22 09:57] VITALS: BP 84/49; Ht 172.7 cm; Wt 71.8 kg
[2018-07-22 10:07] LABS: BASOPHILS 0.3 % (0-2); EOSINOPHILS 1.3 % (0-7); HEMATOCRIT 37.4 % (36.0-48.0); HEMOGLOBIN 12.4 g/dL (12-16); IMMATURE GRANULOCYTES 0.1 % (0-5); LYMPHOCYTES 18.5 % (15-50); MCH 28.2 pg (26.0-34.0); MCHC 33.2 g/dL (31.0-37.0); MCV 85.2 fL (80.0-100.0); MEAN PLATELET VOLUME 10.2 fL (7.4-10.4); MONOCYTES 7.3 % (2-11); NEUTROPHILS 72.5 % (40-80); PLATELET COUNT 210 10x3/uL (130-400); RBC 4.39 10x6/uL (4.00-5.40); RDW 13.1 % (11.5-14.5); WBC 7.5 10x3/uL (4.8-10.8)
[2018-07-22 10:28] LABS: ANION GAP 8.5 mmol/L (8-16); CALCIUM 8.9 mg/dL (8.5-10.1); CARBON DIOXIDE 30.9 mmol/L (21.0-32.0); CREATININE - SERUM 1.2 mg/dL (0.6-1.3); POTASSIUM - SERUM 4.4 mmol/L (3.5-5.1)
--- NOTE | 2018-07-22 11:02 | NUR ---
DR ISIDRO HAS BEEN NOTIFIED OF PT'S CRITICAL GLUCOSE OF 512. ORDER RECEIVED FOR 12 UNITS OF HUMULIN R INSULIN SQ NOW X1. THIS HAS BEEN GIVEN TO LEFT ARM.
--- NOTE | 2018-07-22 11:55 | NUR ---
FSBS 369, DR ISIDRO NOTIFIED AND NO NEW ORDERS RECEIVED.
--- NOTE | 2018-07-22 13:45 | NUR ---
PATIENT RESTING, RESPONDS TO VERBAL STIMULI. VSS ON 2L NC. RIGHT GROIN DRESSING IS CDI, NO S/S OF BLEEDING OR HEMATOMA. 2+ PEDAL PULSES. FAMILY AT BEDSIDE. NO C/O PAIN, NUMBNESS, OR TINGLING.
--- NOTE | 2018-07-22 14:15 | NUR ---
PATIENT RESTING, VSS ON 1L NC. RIGHT GROIN DRESSING IS CDI, NO S/S OF BLEEDING OR HEMATOMA. NO C/O PAIN, NUMBNESS, OR TINGLING.
--- NOTE | 2018-07-22 14:45 | NUR ---
PATIENT INTERMITTENTLY RESTING, WAKES TO VERBAL STIMULI. VSS ON 1L NC. RIGHT GROIN DRESSING IS CDI, NO S/S OF BLEEDING OR HEMATOMA. NO C/O PAIN, NUMBNESS, OR TINGLING. AT BEDSIDE.
--- NOTE | 2018-07-22 15:03 | OP ---
PATIENT NAME: GREGG ESPINO MEDICAL RECORD: [id number] :52 LOCATION:D.CAT ADMISSION DATE: SURGEON: AGUSTIN ISIDRO MD DATE OF OPERATION: 07/22/2018 PROCEDURES: 1. PTCA stent left circumflex. 2. PTCA stent ramus intermedius. 3. Selective coronary angiography. INDICATION: Angina and coronary artery disease. PROCEDURE IN DETAIL: After informed consent was obtained and after detailed description of risks, benefits as well as alternative therapies, the patient elected to proceed with angiogram and angioplasty. The right femoral area was prepped and draped in normal sterile fashion. Right femoral artery was cannulated via modified Seldinger technique with placement of 6-Thai sheath. FINDINGS: The left circumflex and ramus intermedius, both were 80-90% stenosis, addressed with a 2.5 x 15-mm Bill in the circumflex itself, 2.5 x 12-mm [place] in the ramus intermedius. Result was 0% residual stenosis. OVERALL IMPRESSION: Successful percutaneous transluminal coronary angioplasty stent of the left circumflex and ramus intermedius, both going from 80% to 90% initial stenosis to 0% residual. TRANSINT:[id number] Voice Confirmation ID: [id number] DOCUMENT ID: [id number] AGUSTIN ISIDRO MD at 1503 CC: [id number] DICTATION DATE: 07/22/18 1319 OIL FIELD WORKER: 07/22/18 1337 REG [facility] [address] [place] [address]
--- NOTE | 2018-07-22 15:03 | HP ---
PATIENT: GREGG ESPINO MEDICAL RECORD: [id number] ACCOUNT: [id number] LOCATION:[facility] : 52 ADMISSION DATE: 07/22/18 PCP: SHERRILL BENITES MD HISTORY AND PHYSICAL EXAMINATION ADMITTING DIAGNOSES: 1. Angina. 2. Coronary artery disease. 3. Recent percutaneous transluminal coronary angioplasty stent of the left anterior descending with concomitant disease of the circumflex. 4. Hypertension. 5. Hyperlipidemia. HISTORY OF PRESENT ILLNESS: Ms. Espino presents with anginal symptomatology, found to have 2-vessel disease of the LAD and circumflex, underwent successful PTCA stent of the LAD, is now brought back for PTCA stent of the circumflex. PHYSICAL EXAMINATION: GENERAL APPEARANCE: Well-nourished, well-developed, appears stated age. Level of distress, comfortable. PSYCHIATRIC: Mental status, alert, normal affect. Orientation, oriented to time, place and person. EYES: Lids and conjunctiva, noninjected. No discharge, no pallor. ENT: Lips, teeth, gums, normal dentition. Oropharynx, no cyanosis, no pallor. NECK: Carotid arteries, bilateral normal upstroke, no bruits, no thrills. JUGULAR VEINS: No jugular venous pressure or distention. CERVICAL LYMPH NODES: Nontender, nonenlarged. THYROID: Not enlarged. Nontender. No nodules. LUNGS: Respiratory effort, unlabored. CHEST: Normal curvature. No thoracic deformity. No chest wall tenderness. Percussion, resonant. Auscultation, clear. No wheezes, no rales, no rhonchi. CARDIOVASCULAR: Precordial exam, nondisplaced. No heaves or pericardial thrills. Rate and rhythm, regular. Heart sounds, normal S1, normal S2. No S3, no gallop, no rub. Systolic murmur, not heard. Diastolic murmur, not heard. EXTREMITIES: No cyanosis, no edema. Peripheral pulses, full and equal in all extremities, except as noted. No bruits appreciated. ABDOMEN: Soft, nondistended. Normal aorta. No bruit. Nontender. No masses. Liver, nontender, no hepatomegaly. Spleen, nontender, no splenomegaly. MUSCULOSKELETAL: No joint tenderness. No joint swelling. No erythema. NEUROLOGICAL: Normal gait, normal strength, normal tone. SKIN: Warm and dry. OVERALL IMPRESSION: Anginal symptomatology with significant disease of circumflex. We will proceed with percutaneous transluminal coronary angioplasty stent of circumflex. TRANSINT:[id number] Voice Confirmation ID: [id number] DOCUMENT ID: [id number] HISTORY AND PHYSICAL [id number] GREGG ESPINO JEFFREY MD at 1503 CC: [id number] DICTATION DATE: 07/22/18 1218 REEL FED PRINTER: 07/22/18 1242 [address] [place] [address]
--- NOTE | 2018-07-22 15:15 | NUR ---
PATIENT RESTING, PHYSICIAN AT BEDSIDE TO UPDATE FAMILY. RIGHT GROIN DRESSING IS CDI, NO S/S OF BLEEDING OR HEMATOMA. NO C/O PAIN, NUMBNESS, OR TINGLING. VSS ON 1L NC.
--- NOTE | 2018-07-22 15:45 | NUR ---
PATIENT AWAKE, GIVEN PUDDING PER REQUEST. NO N/V. RIGHT GROIN DRESSING IS CDI, NO S/S OF BLEEDING OR HEMATOMA. NO C/O PAIN, NUMBNESS, OR TINGLING. VSS ON ROOM AIR.
--- NOTE | 2018-07-22 16:15 | NUR ---
HEAD OF BED ELEVATED TO 30 DEGREES, RIGHT GROIN DRESSING IS CDI, NO S/S OF BLEEDING OR HEMATOMA. NO C/O PAIN, NUMBNESS, OR TINGLING. PATIENT TOLERATING PO FLUIDS AND FOOD, NO N/V.
--- NOTE | 2018-07-22 16:45 | NUR ---
HEAD OF BED AT 90 DEGREES. RIGHT GROIN DRESSING IS CDI, NO S/S OF BLEEDING OR HEMATOMA. IV REMOVED. EDUCATION REGARDING DISCHARGE INSTRUCTIONS AND MEDICATION COMPLIANCE GIVEN TO PATIENT AND SPOUSE, PATIENT VOICES UNDERSTANDING. VSS ON ROOM AIR.
--- NOTE | 2018-07-22 17:00 | NUR ---
PATIENT TRANSPORTED VIA WHEELCHAIR TO CAR WITH SPOUSE DRIVING, ALL BELONGINGS WITH PATIENT.
== END 2018-07-22 17:00 ==
LOC: D.CATH 09:21
PROVIDERS: ATTEND Internal Medicine Interventional Cardiology
DX: I25.119 Atherosclerotic heart disease of native coronary artery with unspecified angina pectoris (principal); Z01.812 Encounter for preprocedural laboratory examination
CPT/HCPCS: C9600 ×2

== ENCOUNTER 2018-12-24 08:28 | Inpatient (IN) | payer OTHER ==
[~2018-12-24] VITALS: Ht 167.6 cm; Wt 71.1 kg
--- NOTE | ~2018-12-24 | HEMODYNAMI ---
PATIENT:GREGG ESPINO MEDICAL RECORD: [id number] : 52 LOCATION[facility] [id number] ADMISSION DATE: 12/24/18 Generatedon:12/24/201812:06 Patient name: GREGG ESPINO Patient #: [id number] SSN: DO B: 1950 Date of study: 12/24/2018 Page: Of Hemodynamic Procedure Report Patient Data Patient Demographics Procedure consent was obtained First Name: GREGG Gender: Female Last Name: SRINIVAS : 1950 [facility] Initial: GERDA Age: 68 year(s) Patient #: [id number] Race: Unknown Additional ID: [id number] Contact details Address: [address] [place] [address] State: [place] City: [place] Zip code: [address] Past Medical History Allergies: No known allergies Admission Admission Data Admission Date: 12/24/2018 Admission Time: 9:13 Room #: [facility]8 Insurance Payor: Medicare [facility] #: [id number] Height (in.): 65.75 BSA: 1.76 (m2) Height (cm.): 167 BMI: 24.38 (kg/m2) Weight (lbs.): 149.92 Weight (kg.): 68 Lab Results Lab Result Date: 12/24/2018 Lab Result Time: 0:00 Biochemistry Name Units Result Min Max BUN mg/dl 19 --(----)*- 7 18 Creatinine mg/dl 0.9 --(-*--)-- 0.6 1.3 eGFR ml/min 66 *-(----)-- 90 120 NONAFRICAN CBC Name Units Result Min Max Hematocrit % 36.9 *-(----)-- 42 54 Hemoglobin g/dl 12.5 *-(----)-- 13.5 17.5 Procedure Procedure Types Cath Procedure Diagnostic Procedure LHC [facility] w/Coronaries Sedation Charges Moderate Sedation up to 15 minutes Procedure Description Procedure Date Procedure Date: 12/24/2018 Procedure Start Time: 11:48 Procedure End Time: 12:05 Procedure Staff Name Function Bishop Castillo MD Performing Physician Amirah Johnson RT Monitor Rose Mary Mccann RN Nurse Pete Garay RT Scrub Procedure Data Cath Procedure Fluoroscopy Diagnostic fluoroscopy Total fluoroscopy Time: 1.2 time: 1.2 min min Diagnostic fluoroscopy Total fluoroscopy dose: 394 dose: 394 mGy mGy Contrast Material Contrast Material Type Amount (ml) Isovue 300 60 Entry Location Entry Primary Successful Side Size Upsize Upsize Entry Closure Rico ccessful Closure Location (Fr) 1 (Fr) 2 (Fr) Remarks Device Remarks Radial Right 6 Fr Mechanical artery Short Compression Estimated blood loss: 10 ml Diagnostic catheters Device Type Used For End Catheter Placement DIAGNOSTIC Perrin 110cm 5 Procedure Fr catheter ([id number]) Procedure Complications No complications Procedure Medications Medication Administration Route Dosage 0.9% NaCl I.V. 100 ml/hr Oxygen etCO2 Nasal cannula 2 l/min Lidocaine 2% added to field 20 Heparin Flush Bag added to field 2 bags (1000units/500ml NS) Radial Cocktail added to field 1 syringe (Verapamil 2mg/Nitro 400mcg/Heparin 1500units) Versed I.V. 2 mg Fentanyl I.V. 50 mcg Plavix P.O. 75 mg Fentanyl I.V. 50 mcg Hemodynamics Rest BSA: 1.76 (m2) HGB: 12.5 (g/dl) O2 Consumption: Estimated: 154.03 (ml/min) O2 Co nsumption indexed: Estimated:87.52 (ml/min/m) Heart Rate: 56 (bpm) Pressure Samples Time Site Value (mmHg) Purpose Heart Use Rate(bpm) 11:54 LV 82/-2,3 Snapshot 61 Gradients Valve Time Site Site Mean SEP/DFP Peak To Heart Use 1 2 (mmHg) (sec/min) Peak Rate (mmHg) (bpm) Aortic 11:54 LV AO 60 Snapshots Pre Cath Intra NCS Post Cath Vital Signs Time Heart Resp SPO2 etCO2 NIBP (mmHg) Rhythm Pain Sedation Rate (ipm) (%) (mmHg) Status Level (bpm) 11:34:14 58 13 97 38.3 172/81(114) SB 0 (11) 10(A) , No pain 11:38:36 55 18 97 42.8 164/82(125) SB 0 (11) 10(A) , No pain 11:42:55 55 13 97 43.6 107/61(83) SB 0 (11) 10(A) , No pain 11:47:04 53 13 98 43.6 111/62(85) SB 0 (11) 10(A) , No pain 11:51:16 53 13 98 42.8 106/58(79) SB 0 (11) 10(A) , No pain 11:55:26 60 15 98 38.3 76/48(61) NSR 0 (11) 9(A) , No pain 11:59:30 62 13 98 39.8 89/44(65) NSR 0 (11) 9(A) , No pain 12:03:36 57 15 97 40.6 92/51(70) SB 0 (11) 10(A) , No pain Medications Time Medication Route Dose Verified Delivered Reason Notes Effectiveness by by 11:33:57 0.9% NaCl I.V. 100 Bishop Rose Mary used for ml/hr Jonathan Mccann elementary ell teacher 11:34:03 Oxygen etCO2 2 l/min Bishop Rose Mary used for Nasal Jonathan Mccann procedure cannula RN 11:34:08 Lidocaine 2% added 20ml Bishop Bishop for local to vial Jonathan Castillo MD anesthetic field 11:34:13 Heparin Flush added 2 bags Bishop Bishop used for Bag to Jonathan Castillo MD procedure (1000units/500ml field NS) 11:34:18 Radial Cocktail added 1 Bishop Bishop used for (Verapamil to syringe Jonathan Castillo MD procedure 2mg/Nitro field 400mcg/Heparin 1500units) 11:34:56 Plavix P.O. 75 mg Bishop Rose Mary for Jonathan Mccann antiplatelet RN therapy 11:45:08 Versed I.V. 2 mg Bishop Rose Mary for sedation Jonathan Mccann RN 11:45:16 Fentanyl I.V. 50 mcg Bishop Rose Mary for sedation Jonathan Mccann RN 11:51:08 Fentanyl I.V. 50 mcg Bishop Rose Mary for sedation Jonathan Mccann outside sales account manager Log Time Note 11:07:57 Pete Garay RT(R) sent for patient. Start room use. 11:07:59 Time tracking: Call back (After hours or weekends) 11:08:03 Plan of Care:Hemodynamics will remain stable., Cardiac rhythm will remain stable., Comfort level will be maintained., Respiratory function will remain adequate., Patient/ family verbilizes understanding of procedure., Procedure tolerated without complication., Recovers from procedure without complications.. 11:17:42 Signed procedure consent form obtained from patient. 11:18:08 Patient allergic to No known allergies 11:18:38 Lab Result : BUN 19 mg/dl 11:18:38 Lab Result : Creatinine 0.9 mg/dl 11:18:38 Lab Result : eGFR NONAFRICAN 66 ml/min 11:18:38 Lab Result : Hematocrit 36.9 % 11:18:38 Lab Result : Hemoglobin 12.5 g/dl 11:18:47 Patient Weight : 149.92 lbs 11:18:51 Patient Height : 65.75 inches 11:19:14 Insurance Payor : Medicare 11:21:20 Procedure Status Urgent Heart Cath (IP). 11:24:31 Patient received from Med II to CCL 1 Alert and oriented. Tansferred to table in Supine position. 11:24:33 Warm blankets applied, and nena hugger turned on for patient comfort. 11:24:34 Correct patient and procedure confirmed by team. 11:24:34 ECG and BP/O2 sat monitors applied to patient. 11:32:57 Vital chart was started 11:33:00 Baseline sample Acquired. 11:33:03 Rhythm: sinus bradycardia 11:33:04 Full Disclosure recording started 11:33:05 Pre-procedure instructions explained to patient. 11:33:06 Pre-op teaching completed and patient verbalized understanding. 11:33:08 Family in patients room. 11:33:09 Patient NPO since Midnight. 11:33:12 Is the patient allergic to Iodine/contrast media? No. 11:33:13 Is patient on blood thinner?Yes 11:33:16 ACC The patient was administered the following blood thiners within the last 24 hours: ACCPlavix 11:33:17 Patient diabetic? Yes. 11:33:17 If diabetic: On Metformin? Yes 11:33:19 If on Metformin: Last Dose? 12/23/2018 11:33:57 0.9% NaCl 100 ml/hr I.V. was administered by Rose Mary Mccann RN; used for procedure; 11:34:03 Oxygen 2 l/min etCO2 Nasal cannula was administered by Rose Mary Mccann RN; used for procedure; 11:34:08 Lidocaine 2% 20ml vial added to field was administered by Bishop Castillo MD; for local anesthetic; 11:34:13 Heparin Flush Bag (1000units/500ml NS) 2 bags added to field was administered by Bishop Castillo MD; used for procedure; 11:34:18 Radial Cocktail (Verapamil 2mg/Nitro 400mcg/Heparin 1500units) 1 syringe added to field was administered by Bishop Castillo MD; used for procedure; 11:34:56 Plavix 75 mg P.O. was administered by Rose Mary Mccann RN; for antiplatelet therapy; 11:35:28 Previous problem with sedation/anesthesia? No ? 11:35:30 Snore? Yes 11:35:31 Sleep apnea? No 11:35:32 Deviated septum? No 11:35:32 Opens mouth fully? Yes 11:35:33 Sticks out tongue? Yes 11:35:35 Airway obstruction? No ? 11:35:37 Dentures? No ? 11:35:39 Modified Issac's test Ulnar < 7 seconds 11:35:41 Patient pain scale 0/10 ?. 11:35:56 IV patent on arrival in left forearm with 0.9% NaCl at [facility]. 11:35:58 Lab results completed and on chart. 11:36:03 Right Radial & Right Groin area was prepped with chlora-prep and draped in sterile fashion 11:36:04 Alarms reviewed by R. N. 11:36:04 Sharps counted by scrub and verified by R.N. 11:36:32 UNABLE TO TAKE PATIENTS RINGS OFF OF RIGHT FINGERS. PT. WAS OKAY TO CONTINUE GOING RADIAL. 11:39:40 Use device set Radial Dx or PCI 11:39:41 ACIST Syringe (10019) opened to sterile field. 11:39:43 Bag Decanter () opened to sterile field. 11:39:43 ACIST Hand Control (73888) opened to sterile field. 11:39:43 ACIST Manifold (53455) opened to sterile field. 11:39:44 Tegaderm 4 x 4 (1626W) opened to sterile field. 11:39:46 Medline Cath Pack ([id number]) opened to sterile field. 11:39:46 MBrace Wrist Support ([id number]) opened to sterile field. 11:39:50 EMERALD Guide Wire (877-990) opened to sterile field. 11:39:52 NEEDLE Cook 21G 4cm Radial ([id number]) opened to sterile field. 11:44:17 Zero performed for pressure channel P1 :44:39 --------ALL STOP TIME OUT------ :44:39 Final Timeout: patient, procedure, and site verified with staff and physician. All members of the team are in agreement. 11:44:41 Right Radial & Right Groin site verified by team. 11:44:44 Fire Safety Assessment: A--An alcohol-based skin anteseptic being used preoperatively., C--Open oxygen or nitrous oxide is being used., D--An ESU, laser, or fiber-optic light is being used. 11:44:47 Physical assessment completed. ASA score P 2 - A patient with mild systemic disease as per Bishop Castillo MD. 11:44:52 2) 60-89 Mildly reduced kidney function, and other findings (as for stage 1) point to kidney disease. 11:44:56 Maximum allowable contrast dose (3.7 X eGFR X 0.75)173 ml. 11:44:59 Sedation plan: IV Moderate Sedation Medication:Versed, Fentanyl 11:45:08 Versed 2 mg I.V. was administered by Rose Mary Mccann RN; for sedation; 11:45:16 Fentanyl 50 mcg I.V. was administered by Rose Mary Mccann RN; for sedation; 11:48:31 Procedure started. 11:48:40 Local anesthetic to right radial artery with Lidocaine 2% by Bishop Castillo MD.INITIAL ACCESS ONLY 11:51:08 Fentanyl 50 mcg I.V. was administered by Rose Mary Mccann RN; for sedation; 11:52:04 A 6 Fr Short sheath was inserted into the Right Radial artery 11:52:27 A DIAGNOSTIC Perrin 110cm 5 Fr catheter ([id number]) was advanced over the wire and used for Procedure. 11:53:33 LV gram done using JEWELL 11:53:34 Injector settings: Ml/sec: 5, Volume: 15, 11:54:05 LV hemodynamics recorded. 11:54:17 EF : 60 % 11:56:39 LCA angiography performed. 11:57:02 RCA angiography performed. 12:00:28 ACCDominant side:Right 12:00:52 Catheter removed. 12:01:31 Procedure ended.(Physican Out) 12:02:59 ZEPHYR REGULAR TR BAND (620999) opened to sterile field. 12:03:18 Sheath removed intact; hemostasis achieved with Mechanical Compression to the Right Radial artery. 12:03:25 Fluoroscopy time 01.20 minutes. 12:03:30 Flurop Dose total: 394 12:03:30 Fluoroscopy dose: 394 mGy 12:03:39 Dose Area Product 92535 mGy/cm. 12:03:50 Contrast amount:Isovue 300 60ml. 12:03:52 Maximum allowable dose exceeded? No. 12:03:53 Sharps counted by scrub and verified by R.N. 12:03:56 [place] band inflated with 10cc of air. 12:03:58 Insertion/operative site no bleeding no hematoma. 12:04:01 Post-procedure physical assessment completed. ASA score P 2 - A patient with mild systemic disease as per Bishop Castillo MD. 12:04:09 Post procedure rhythm: sinus bradycardia 12:04:11 Estimated blood loss: 10 ml 12:04:12 Post procedure instruction explained to patient.Patient verbalizes understanding. 12:04:12 Patient needs reinforcement of post procedure teaching. 12:04:38 Procedure type changed to Cath procedure, Diagnostic procedure, LHC, LHC w/Coronaries, Sedation Charges, Moderate Sedation up to 15 minutes 12:05:21 Procedure and supply charges have been captured, reviewed, submitted and are correct. 12:05:25 Procedure Complication : No complications 12:05:28 Vital chart was stopped 12:05:28 See physician's report for complete and final results. 12:05:38 Report given to PCU. 12:05:42 Patient transfered to PCU with Bed. 12:05:44 Procedure ended. 12:05:44 Full Disclosure recording stopped 12:05:48 End room use (Document Last) Device Usage Item Name Manufacture Quantity Catalog Hospital Part Current Minima l Lot# / Number Charge Number Stock Stock Serial# Code IST [facility] 1 19801 [id number] [id number] 20 ASSURED INFORMATION SECURITY (49921) [employer] Inc Bag Microtek 1 [id number] 47974 577083 5 Decanter Medical Inc. (2001S) ACIST Hand Acist 1 49454 153314 534836 603986 5 Control Medical (05845) Systems Inc ACIST Acist 1 35408 919233 389141 206943 5 Manifold Medical (04620) Systems Inc Tegaderm 4 3M 1 1626W 343776 047113 778247 5 x 4 (1626W) Medline Medline 1 [id number] 580300 28442 607518 5 Cath Pack ([id number]) MBrace Advanced 1 140-0250-00 622268 38345 485273 5 Wrist Vascular Support Dynamics ([id number]) EMERALD Cardinal 1 920-346 294645 649348 375937 5 Guide Wire Health (182-926) NEEDLE Cook Cook Medical 1 [id number] 153204 018283 940804 5 21G 4cm Radial (C17913) DIAGNOSTIC Terumo 1 88-3424 939345 270649 218635 5 Perrin 110cm 5 Fr catheter (486100) ZEPHYR Cardinal 1 072215 745655 5681809 788508 5 REGULAR TR Health BAND (677560) Signature Audit [place] Stage Time Signature Unsigned Intra-Procedure 12/24/2018 Amirah Johnson 12:06:40 PM RT(R) Signatures Performing Physician : Signature : Bishop Castillo MD Date : Time : Monitor : Amirah Johnson Signature : RT Date : Time : Nurse : Rose Mary Mccann RN Signature : Date : Time : [place] [id number] [id number]
[~2018-12-24 08:28] MED LIST changes: +CELEXA20 MG PO; +LISINOPRIL20 MG PO; +METOPROLOL TART50 MG PO; +PLAVIX75 MG PO; +PRAVACHOL40 MG PO
[2018-12-24] MEDS ORDERED: GLUCOPHAGE1000 MG PO (08:36)
[2018-12-24] MEDS ORDERED: LIPITOR20 MG PO (08:38)
[2018-12-24] MEDS ORDERED: ZANAFLEX4 MG PO (08:38)
[2018-12-24 08:52] VITALS: BP 144/74
[2018-12-24 09:06] LABS: BASOPHILS 0.3 % (0-2); EOSINOPHILS 1.9 % (0-7); HEMATOCRIT 36.9 % (36.0-48.0); HEMOGLOBIN 12.5 g/dL (12-16); IMMATURE GRANULOCYTES 0.2 % (0-5); LYMPHOCYTES 39.9 % (15-50); MCH 28.9 pg (26.0-34.0); MCHC 33.9 g/dL (31.0-37.0); MCV 85.2 fL (80.0-100.0); MEAN PLATELET VOLUME 9.6 fL (7.4-10.4); MONOCYTES 6.9 % (2-11); NEUTROPHILS 50.8 % (40-80); PLATELET COUNT 224 10x3/uL (130-400); RBC 4.33 10x6/uL (4.00-5.40); RDW 13.5 % (11.5-14.5); WBC 6.4 10x3/uL (4.8-10.8)
--- NOTE | 2018-12-24 09:10 | NUR ---
DR. ECHEVARRIA AT BEDSIDE.
[2018-12-24 09:21] LABS: APTT 35.6 SECONDS (22.8-39.4); INR 1.04 (0.85-1.17); PROTIME 13.1 SECONDS (11.6-15.0)
[2018-12-24 09:33] LABS: ALBUMIN 3.4 g/dL (3.4-5.0); ANION GAP 12.4 mmol/L (8-16); BILIRUBIN - TOTAL 0.56 mg/dL (0.2-1.3); CARBON DIOXIDE 24.9 mmol/L (21.0-32.0); CREATININE - SERUM 0.9 mg/dL (0.6-1.3); POTASSIUM - SERUM 4.3 mmol/L (3.5-5.1); PROTEIN - SERUM 6.8 g/dL (6.4-8.2)
[2018-12-24 09:41] LABS: MAGNESIUM - SERUM 1.5 mg/dL (1.8-2.4)
--- NOTE | 2018-12-24 09:42 | NUR ---
RECEIVED PT FROM ER. PT IS AAO AND UP AD ANDRIY. RR EVEN AND UNLABORED ON 2L 02. L.HAND PIV IS SALINE LOCKED. CONSENTS FOR CATH SIGNED. TELEMETRY APPLIED. NO S/S OF DISTRESS NOTED. WILL CTM.
[2018-12-24 09:43] LABS: TROPONIN-I 0.396 ng/mL (0.000-0.060)
[2018-12-24 10:30] VITALS: BP 162/78; BMI 24.2
[2018-12-24 10:52] VITALS: BP 195/113
--- NOTE | 2018-12-24 11:26 | NUR ---
PREOP MEDS ADMINISTERED PER [facility]ANQUET [facility] REQUEST. PT TRANSFERED TO [facility]. WILL CTM.
--- NOTE | 2018-12-24 12:43 | NUR ---
RECEIVED PT BACK FROM [facility] PAINTER. RIGHT ZEPHER BAND IN PLACE C/D/I. NO S/S OF HEMATOMA PRESENT. RECEVIED ORDERS PER . TO INITIATE HEPARIN 3 HOURS POST SHEATH REMOVAL. WILL PLACE ORDER. WILL CTM.
[2018-12-24 13:04] LABS: HEMATOCRIT 34.4 % (36.0-48.0); HEMOGLOBIN 11.5 g/dL (12-16); MCH 28.8 pg (26.0-34.0); MCHC 33.4 g/dL (31.0-37.0); MCV 86.2 fL (80.0-100.0); MEAN PLATELET VOLUME 9.8 fL (7.4-10.4); RBC 3.99 10x6/uL (4.00-5.40); RDW 13.5 % (11.5-14.5); WBC 4.9 10x3/uL (4.8-10.8)
[2018-12-24 13:05] LABS: PLT FUNCT.(P2Y12) PLAVIX 136 PRU (194-418)
[2018-12-24 13:23] LABS: INR 1.12 (0.85-1.17); PROTIME 13.9 SECONDS (11.6-15.0)
[2018-12-24 13:25] LABS: APTT 54.1 SECONDS (22.8-39.4)
[2018-12-24 15:20] VITALS: BP 106/62
--- NOTE | 2018-12-24 15:50 | NUR ---
BEGAN INFUSION OF HEPARIN AT 10UNITS/HR VIA L.FOR PIV. ADMINISTERED 5000UNITS ONE TIME DOSE VIA L.FOR PIV. PT DENIES ANY NEEDS. WILL CTM.
--- NOTE | 2018-12-24 17:53 | NUR ---
PT CURRENTLY LYING SEMI FOWLERS. CALL LIGHT W/I REACH. AT BEDSIDE. HEPARIN INFUSING @10ML/HR VIA L.FOR PIV. RR EVEN AND UNLABORED ON RA. PT DENIES ANY NEEDS. VSS AND WNL. NO S/S OF DISTRESS NOTED. WILL CTM.
[2018-12-24 20:35] VITALS: BP 93/46
--- NOTE | 2018-12-24 23:00 | NUR ---
IV TO LEFT UPPER ARM LEAKING. RESITED IV TO INNER RIGHT FOREARM 22 GUAGE.
[2018-12-24 23:34] VITALS: BP 99/46
--- NOTE | 2018-12-25 00:54 | NUR ---
RESTING WITH EYES CLOSED, RESPERATIONS EVEN, NO S/S DISTRESS NOTED.
[2018-12-25 03:31] VITALS: BP 95/46
--- NOTE | 2018-12-25 04:00 | NUR ---
I have reviewed this patient and I concur with the Shift Assessment completed by the Licensed Practical Nurse today this shift.
[2018-12-25 05:56] LABS: ANION GAP 13.2 mmol/L (8-16); CALCIUM 8.9 mg/dL (8.5-10.1); CARBON DIOXIDE 26.8 mmol/L (21.0-32.0); CREATININE - SERUM 0.9 mg/dL (0.6-1.3)
[2018-12-25 06:19] LABS: BASOPHILS 0.3 % (0-2); EOSINOPHILS 1.8 % (0-7); HEMATOCRIT 34.2 % (36.0-48.0); HEMOGLOBIN 11.4 g/dL (12-16); IMMATURE GRANULOCYTES 0.2 % (0-5); LYMPHOCYTES 47.7 % (15-50); MCH 28.7 pg (26.0-34.0); MCHC 33.3 g/dL (31.0-37.0); MCV 86.1 fL (80.0-100.0); MEAN PLATELET VOLUME 10.1 fL (7.4-10.4); MONOCYTES 8.2 % (2-11); NEUTROPHILS 41.8 % (40-80); PLATELET COUNT 209 10x3/uL (130-400); RBC 3.97 10x6/uL (4.00-5.40); RDW 13.6 % (11.5-14.5)
[2018-12-25 06:22] LABS: WBC 6.3 10x3/uL (4.8-10.8)
[2018-12-25 08:33] VITALS: BP 114/73
[2018-12-25 12:06] VITALS: BP 116/67
[2018-12-25 12:59] LABS: % SATURATION 32 % (15-55); IRON 81 ug/dl (35-150); TOTAL IRON BIND CAPACITY 252 ug/dl (260-445); UNSAT IRON BIND CAPACITY 171 ug/dl (150-375)
[2018-12-25 15:00] VITALS: BP 110/70
[2018-12-25 15:23] LABS: APPEARANCE CLEAR (CLEAR); BILIRUBIN NEGATIVE (NEGATIVE); COLOR YELLOW (YELLOW); GLUCOSE 50 mg/dL (NEGATIVE); KETONE NEGATIVE (NEGATIVE); NITRITE NEGATIVE (NEGATIVE); PROTEIN NEGATIVE (NEGATIVE); SPECIFIC GRAVITY 1.015 (1.005-1.020); UROBILINOGEN NORMAL (NORMAL)
[2018-12-25 15:25] LABS: BACTERIA FEW /hpf (NONE SEEN); EPITHELIAL CELLS 0-5 /hpf (0-5); RED CELLS - URINE 0-5 /hpf (0-5)
--- NOTE | 2018-12-25 17:32 | NUR ---
ALERT AND ORIENTED X4. SITTING UP IN THE BED. SPOUSE AT BEDSIDE. HEPARIN DRIP INFUSING ORDERED. SINUS SIMON 53 ON TELEMETRY. DENIES ANY NEEDS AT THIS TIME. CONTINUE PLAN OF CARE AND SAFETY PRECAUTIONS.
--- NOTE | 2018-12-25 19:35 | NUR ---
PT PLEASENT AND DENIES NEEDS AT THIS TIME LCTA SKIN WARM AND DRY I REMOVED FEM STOP NO BLEEDING AND AIR HAD BEEN REMOVED BED LOW AND LOCKED CALL LIGHT IN REACH
[2018-12-25 20:00] VITALS: BP 131/66
[2018-12-25 22:49] VITALS: BP 131/66
[2018-12-26] VITALS (7 sets, daily range): BP systolic 97–162; BP diastolic 52–94
[2018-12-26 07:00] LABS: CALC OSMOLALITY 279 mosm/kg (275-300); CALCIUM 8.8 mg/dL (8.5-10.1); CARBON DIOXIDE 28.6 mmol/L (21.0-32.0); CHLORIDE - SERUM 105 mmol/L (98-107); CREATININE - SERUM 0.8 mg/dL (0.6-1.3); GLUCOSE 116 mg/dL (74-106); POTASSIUM - SERUM 3.9 mmol/L (3.5-5.1); SODIUM 140 mmol/L (136-145); UREA NITROGEN 13 mg/dL (7-18); eGFR NON AFRICAN AMERICAN 76 mL/min (90-120)
--- NOTE | 2018-12-26 07:34 | NUR ---
RECIEVED REPORT. ALERT AND ORIENTED X4. RESTING IN BED. SPOUSE AT BEDSIDE. SINUS RHYTHM 66 ON TELEMETRY. DENIES ANY NEEDS AT THIS TIME. CONTINUE PLAN OF CARE AND SAFETY PRECAUTIONS.
[2018-12-26 07:50] LABS: PLT FUNCT.(P2Y12) PLAVIX 215 PRU (194-418)
[2018-12-26 07:52] LABS: BASOPHILS 0.1 % (0-2); EOSINOPHILS 1.4 % (0-7); HEMATOCRIT 35.3 % (36.0-48.0); IMMATURE GRANULOCYTES 0.3 % (0-5); LYMPHOCYTES 36.9 % (15-50); MCV 85.3 fL (80.0-100.0); MEAN PLATELET VOLUME 10.2 fL (7.4-10.4); MONOCYTES 7.3 % (2-11); PLATELET COUNT 223 10x3/uL (130-400); RBC 4.14 10x6/uL (4.00-5.40); RDW 13.4 % (11.5-14.5)
[2018-12-26 07:56] LABS: WBC 7.9 10x3/uL (4.8-10.8)
--- NOTE | 2018-12-26 09:04 | NUR ---
ALERT AND ORIENTED X4. LAYING IN BED CRYING. REPORTS SEVERE CHEST PAIN. NOTIFY . MORPHINE 2-4mg EVERY 2-4HOURS PRN PER VIA TELEPHONE ORDERED. EKG ON CHART. SINUS RHYTHM 90 ON TELEMETRY. HEPARIN DRIP INCREASED TO 9 PER PROTOCOL. LAB ORDERED TO REDRAW AT 1500. REPORTS SLOW RELIEF FROM MORPHINE AND NITRO PATCH. CONTINUE PLAN OF CARE AND SAFETY PRECAUTIONS.
--- NOTE | 2018-12-26 17:08 | NUR ---
ALERT AND ORIENTED X4. PTT 63. INCREASE HEPARIN 100 UNITS TO 10 PER HEPARIN PROTOCOL. DENIES PAIN AT THIS TIME. SINUS RHYTHM 60 ON TELEMETRY. CONTINUE PLAN OF CARE AND SAFETY PRECAUTIONS.
--- NOTE | 2018-12-26 19:23 | NUR ---
AWAKE AND IN BED SKIN WARM AND DRY NTG PASTE TO CHEST WALL PT DENIES CP AT THIS TIME BED IS LOW AND LOCKED AND CALL LIGHT IS IN REACH REMAINS AT BEDSIDE AND I ASSISTED BOTH WITH THEIR COMFORT
[2018-12-27 00:15] LABS: HEMATOCRIT 31.5 % (36.0-48.0); HEMOGLOBIN 10.7 g/dL (12-16); MCH 28.6 pg (26.0-34.0); MCV 84.2 fL (80.0-100.0); MEAN PLATELET VOLUME 9.9 fL (7.4-10.4); RBC 3.74 10x6/uL (4.00-5.40); RDW 13.3 % (11.5-14.5)
--- NOTE | 2018-12-27 00:19 | NUR ---
PTT 66.7 ACCORDING TO HEP PROTOCAL NO CHANGE NEEDED
[2018-12-27 04:00] VITALS: BP 161/78
--- NOTE | 2018-12-27 06:51 | NUR ---
I have reviewed this patient and I concur with the Shift Assessment completed by the Licensed Practical Nurse today this shift.
[2018-12-27 07:00] LABS: BASOPHILS 0.2 % (0-2); EOSINOPHILS 1.7 % (0-7); HEMATOCRIT 33.1 % (36.0-48.0); HEMOGLOBIN 11.3 g/dL (12-16); IMMATURE GRANULOCYTES 0.2 % (0-5); MCH 28.8 pg (26.0-34.0); MCHC 34.1 g/dL (31.0-37.0); MCV 84.2 fL (80.0-100.0); MEAN PLATELET VOLUME 9.9 fL (7.4-10.4); MONOCYTES 8.5 % (2-11); NEUTROPHILS 46.4 % (40-80); PLATELET COUNT 208 10x3/uL (130-400); RBC 3.93 10x6/uL (4.00-5.40); RDW 13.2 % (11.5-14.5); WBC 6.5 10x3/uL (4.8-10.8)
[2018-12-27 07:21] LABS: CALC OSMOLALITY 284 mosm/kg (275-300); CALCIUM 8.5 mg/dL (8.5-10.1); CARBON DIOXIDE 30.1 mmol/L (21.0-32.0); CHLORIDE - SERUM 105 mmol/L (98-107); CREATININE - SERUM 0.8 mg/dL (0.6-1.3); GLUCOSE 148 mg/dL (74-106); POTASSIUM - SERUM 3.8 mmol/L (3.5-5.1); SODIUM 142 mmol/L (136-145); UREA NITROGEN 10 mg/dL (7-18); eGFR NON AFRICAN AMERICAN 76 mL/min (90-120)
[2018-12-27 07:59] LABS: PLT FUNCT.(P2Y12) PLAVIX 189 PRU (194-418)
[2018-12-27 08:02] VITALS: BP 154/75
[2018-12-27 09:19] LABS: INR 1.04 (0.85-1.17); PROTIME 13.1 SECONDS (11.6-15.0)
[2018-12-27 09:40] LABS: ALBUMIN 3.2 g/dL (3.4-5.0); ALKALINE PHOSPHATASE 72 U/L (46-116); ALT (SGPT) 17 U/L (10-68); BILIRUBIN - TOTAL 0.57 mg/dL (0.2-1.3); CHOLESTEROL, TOTAL 151 mg/dL (0-200); PHOSPHOROUS 3.6 mg/dL (2.5-4.9); PROTEIN - SERUM 6.5 g/dL (6.4-8.2); T4 THYROXIN - FREE 1.14 ng/dL (0.76-1.46); THYROID STIMULATING HORMONE 2.97 uIU/mL (0.36-3.74); URIC ACID 4.7 mg/dL (2.6-7.2)
[2018-12-27 11:19] VITALS: BP 111/63
[2018-12-27 11:22] VITALS: BP 119/62
[2018-12-27 14:14] VITALS: Ht 167.6 cm; Wt 71.1 kg
[2018-12-27 14:29] LABS: APPEARANCE CLEAR (CLEAR); BACTERIA MODERATE /hpf (NONE SEEN); BILIRUBIN NEGATIVE (NEGATIVE); COLOR YELLOW (YELLOW); EPITHELIAL CELLS 0-5 /hpf (0-5); GLUCOSE 500 mg/dL (NEGATIVE); KETONE NEGATIVE (NEGATIVE); MUCUS <1+ /lpf (NONE SEEN); NITRITE NEGATIVE (NEGATIVE); PROTEIN NEGATIVE (NEGATIVE); WHITE CELLS - URINE OCC /hpf (0-5)
[2018-12-27 15:08] VITALS: BP 127/66
--- NOTE | 2018-12-27 16:33 | NUR ---
ALERT AND ORIENTED X4. UP AMBULATING IN [place]. HEPARIN DRIP CONTINUED AT 10. CONSENTS FOR CABAG SIGNED ON CHART. SINUS SIMON 52 ON TELEMETRY. CONTINUE PLAN OF CARE AND SAFETY PRECAUTION.
--- NOTE | 2018-12-27 19:44 | NUR ---
PT ALERT AND OX4 IN BED LOW AND LOCKED CALL LIGHT WITH PT AND PT DENIES ANY NEEDS AT THIS TIME LCTA SKIN WARM AND DRY
[2018-12-27 20:00] VITALS: BP 158/92
[2018-12-28] VITALS (48 sets, daily range): BP systolic 111–160; BP diastolic 45–93
[2018-12-28 03:27] LABS: BASOPHILS 0.3 % (0-2); EOSINOPHILS 1.9 % (0-7); HEMATOCRIT 32.6 % (36.0-48.0); IMMATURE GRANULOCYTES 0.1 % (0-5); MCH 28.4 pg (26.0-34.0); MCHC 33.7 g/dL (31.0-37.0); MCV 84.2 fL (80.0-100.0); MEAN PLATELET VOLUME 10.2 fL (7.4-10.4); NEUTROPHILS 46.7 % (40-80); PLATELET COUNT 217 10x3/uL (130-400); RBC 3.87 10x6/uL (4.00-5.40); RDW 13.3 % (11.5-14.5); WBC 7.3 10x3/uL (4.8-10.8)
--- NOTE | 2018-12-28 03:40 | NUR ---
STOPPED HEPRIN GTT AND SL IV
[2018-12-28 03:41] LABS: CALC OSMOLALITY 286 mosm/kg (275-300); CARBON DIOXIDE 28.8 mmol/L (21.0-32.0); CHLORIDE - SERUM 106 mmol/L (98-107); CREATININE - SERUM 0.8 mg/dL (0.6-1.3); GLUCOSE 144 mg/dL (74-106); POTASSIUM - SERUM 3.9 mmol/L (3.5-5.1); SODIUM 143 mmol/L (136-145); UREA NITROGEN 10 mg/dL (7-18); eGFR NON AFRICAN AMERICAN 76 mL/min (90-120)
--- NOTE | 2018-12-28 06:26 | NUR ---
PT ON STRETCHER TO MOVE TO OR
--- NOTE | 2018-12-28 10:10 | MORECARE ---
CASE MANAGEMENT DISCHARGE SUMMARY PATIENT: GREGG ESPINO UNIT: [id number] ADM DATE: 12/24/18 AGE: 68 : 51 SEX: F ROOM/BED: D.5680 AUTHOR: ANDRIA ROD PHYSICIAN: REFERRING PHYSICIAN: DAVID COLLAZO MD DATE OF SERVICE: 12/28/18 Discharge Plan Patient Name: GREGG ESPINO Facility: [facility]:[place] : 1950 Planned Disposition: Anticipated Discharge Date: Discharge Date: Expected LOS: Initial Reviewer: [email or web address] Initial Review Date: 12/24/2018 Generated: 12/28/18 11:10 am Comments DCP- Discharge Planning Updated by [email or web address]: Reinier Slade on 12/28/18 9:[address] Patient Name: GREGG ESPINO Admission Status: ER Accout number: [id number] Admission Date: 12-24-2018 : 1950 Admission Diagnosis: Attending: DAVID COLLAZO Current LOS: 4 Anticipated DC Date: Planned Disposition: [facility] Dis[facility] Planning Comments: CM ATTEMPTED TO MEET WITH PT FOR INITIAL ASSESSMENT OF DISCHARGE NEEDS. PT WAS NOT IN ROOM AT APPROXIMATELY 0955 HOURS. CM TO ATTEMPT ASSESSMENT AT LATER DATE AND TIME. Shoe Stitcher: Reinier Slade Patient Name: GREGG ESPINO Page 43613 at 1010 All edits/amendments must be made on the electronic document DICTATION DATE: 12/28/18 1009 GRAIN ELEVATOR MOTOR STARTER: RONNI 12/28/18 1009 RPT#: [id number] DC DATE: STATUS: ADM IN [facility] [address] [place] [address] END OF REPORT
--- NOTE | 2018-12-28 15:06 | NUR ---
PT RECIEVED TO ROOM 1321 SEDATED ON VENT ETT 8.0 23 AT THE LIP PLACED ON VENT BY RT R IJ CVL DRESSING CDI WITH PLASMALYTE 100ML/HR, 20KCL FINISHING INFUSION, R RADIAL A LINE ZEROED WITH GOOD WAVEFORM WRIST PROTECTOR IN PLACE, SUBSTERNAL TPM WIRES ATTACHED, TPM AAI 80 AMA 10, SUBSTERNAL CTX3 2 Y'D TOGETHER AND ONE SINGLE, 20CM SUCTION NO AIR LEAK, SUBSTERNAL ELAN DRAIN COMPRESSED WITH BLOODY DRAINAGE, CRITICORE JORGE DRAINING YELLOW URINE, RLE HARVEST SITES WITH COBAN GROIN TO ANKLE, LLE PAM/SCD IN PLACE, UPDATED [address] EMERSON NURSE D[place]OTA OF HR 120 REGULAR RHYTHM, ATTEMPTED TO OBTAIN EKG BUT PT DID NOT SUSTAIN TACHY RHYTHM AND WAS NSR 80/90S, [address] WAKEFIELD ORDERS FOR 20 KCL 1420 PT HR 120S AND OBTAINED ON EKG, DR WAKEFIELD NOTIFIED OF ONE EKG READING SINUS TACH AND ANOTHER AFIB RVR, ORDERS TO GIVE MORPHINE. 1440 DR WAKEFIELD IN ROOM AND TURNED OFF TPM, PT 70S NSR 1500 NO FURTHER ARRHYTHMIAS, SEE IV FLOWSHEET FOR IV GTT TITRATIONS
--- NOTE | 2018-12-28 15:25 | NUR ---
PER DR WAKEFIELD CLEVIPREX INITIATED WHEN NITRO AT 10ML/HR-
--- NOTE | 2018-12-28 16:33 | NUR ---
DOMENICA CALLED TO DR IDANIA MORILLO, DA DOLAN GIVEN
[2018-12-28 16:48] LABS: BASOPHILS 0.1 % (0-2); EOSINOPHILS 0 % (0-7); HEMATOCRIT 35.4 % (36.0-48.0); IMMATURE GRANULOCYTES 0.5 % (0-5); LYMPHOCYTES 10.2 % (15-50); MCH 28.8 pg (26.0-34.0); MCHC 33.9 g/dL (31.0-37.0); MCV 85.1 fL (80.0-100.0); MEAN PLATELET VOLUME 10.2 fL (7.4-10.4); MONOCYTES 5.7 % (2-11); NEUTROPHILS 83.5 % (40-80); PLATELET COUNT 198 10x3/uL (130-400); RBC 4.16 10x6/uL (4.00-5.40); RDW 13.8 % (11.5-14.5)
[2018-12-28 17:00] LABS: INR 1.19 (0.85-1.17); PROTIME 14.6 SECONDS (11.6-15.0)
--- NOTE | 2018-12-28 17:41 | NUR ---
CALLED OR ROOM WITH [facility] AND SPOKE TO DR CHAN WHO RELAYED ABGS TO DR WAKEFIELD WITH ORDERS FOR A RATE 12 TIDAL VOLUME 600 FIO2 60%, ASKED FOR HOW LONG OR WHEN TO BEGIN WEANING AND DR PALMER REPLIED "JUST CHANGE THE SETTINGS"
--- NOTE | 2018-12-28 19:06 | NUR ---
ATTEMPTED TO CALL [facility] TO OR TO NOTIFY DR WAKEFIELD, SPOKE WITH CEM RN WHO STATED THEY WERE NOT IN A SPOT WHERE HE CAN RELAY MESSAGE AND TO CALL BACK. REPORT GIVEN AND ONCOMING NURSE AWARE
--- NOTE | 2018-12-28 19:20 | NUR ---
ORDERS TO EXTUBATE REC'D. RT AT BEDSIDE, PT EXTUBATED AND PLACED ON 4L NC, SPO2 96%. BILATERAL WRIST RESTRAINTS D/C. PT AOX4, FOLLOWS ALL COMMANDS, CALM/COOPERATIVE. ORAL CARE PROVIDED, PT INSTRUCTED/ENCOURAGED TO COUGH/DB.
--- NOTE | 2018-12-28 20:00 | NUR ---
AT BEDSIDE, UPDATE PROVIDED AND QUESTIONS ANSWERED.
--- NOTE | 2018-12-28 21:14 | NUR ---
PT TOLERATING WATER WITH NO C/O NAUSEA. HS MEDS GIVEN WITHOUT DIFFICULTY. PT REPOSITIONED FOR COMFORT. VSS, DENIES FURTHER NEEDS. CALL LIGHT WITHIN PT REACH. CPOC.
--- NOTE | 2018-12-28 23:00 | NUR ---
REASSESSMENT COMPLETE, SEE FLOWSHEET FOR ALL CHANGES. PT REPOSITIONED FOR COMFORT. JORGE CATH CARE PROVIDED AT THIS TIME. I/S COMPLETED REACHING 500 X10, WEAK COUGH. FRESH WATER PROVIDED. DENIES FURTHER NEEDS AT THIS TIME. CALL LIGHT AND BEDSIDE TABLE WITHIN PT REACH. CPOC.
[2018-12-29] VITALS (71 sets, daily range): BP systolic 74–125; BP diastolic 30–60
--- NOTE | 2018-12-29 01:00 | NUR ---
PT DANGLED AT BEDSIDE, COUGH/DB ENCOURAGED. VSS. PARTIAL LINEN CHANGE PROVIDED
--- NOTE | 2018-12-29 03:15 | NUR ---
REASSESSMENT COMPLETE, NO NEW CHANGES AT THIS TIME. PT REPOSITIONED FOR COMFORT. COUGH/DB ENCOURAGED, WEAK COUGH. REACHING 500 ON I/S X10. CT'S INTACT AND DRAINING, ELAN COMPRESSED. CHEST DRESSINGS CDI. VSS. PT RESTING QUIETLY, DENIES FURTHER NEEDS AT THIS TIME. CALL LIGHT WITHIN PT REACH. CPOC.
--- NOTE | 2018-12-29 06:00 | NUR ---
CHG BATH PROVIDED, ORAL CARE PROVIDED. RLE DRESSING CHANGED, TEDS/SOCKS PLACED ON PT. PT UP TO CHAIR X2 RN ASSIST, TOLERATED WELL. COMPLETE LINEN CHANGE PROVIDED. VSS, CALL LIGHT WITHIN PT REACH. CPOC.
[2018-12-29 06:01] LABS: BASOPHILS 0.1 % (0-2); EOSINOPHILS 0 % (0-7); HEMATOCRIT 33.7 % (36.0-48.0); HEMOGLOBIN 11.4 g/dL (12-16); IMMATURE GRANULOCYTES 0.2 % (0-5); LYMPHOCYTES 14.1 % (15-50); MCH 28.9 pg (26.0-34.0); MCHC 33.8 g/dL (31.0-37.0); MCV 85.3 fL (80.0-100.0); MEAN PLATELET VOLUME 10.1 fL (7.4-10.4); MONOCYTES 10.6 % (2-11); PLATELET COUNT 207 10x3/uL (130-400); RBC 3.95 10x6/uL (4.00-5.40); RDW 14.2 % (11.5-14.5); WBC 13.2 10x3/uL (4.8-10.8)
[2018-12-29 06:21] LABS: ALBUMIN 2.8 g/dL (3.4-5.0); BILIRUBIN - TOTAL 0.84 mg/dL (0.2-1.3); CALCIUM 7.7 mg/dL (8.5-10.1); CARBON DIOXIDE 25.8 mmol/L (21.0-32.0); PROTEIN - SERUM 5.9 g/dL (6.4-8.2)
[2018-12-29 06:23] LABS: ANION GAP 13.1 mmol/L (8-16); POTASSIUM - SERUM 4.9 mmol/L (3.5-5.1)
--- NOTE | 2018-12-29 07:00 | NUR ---
REPORT RECEVIED FROM THE OFF GOING RN. SEE ASSESSMENT IN THE PTS FLOW SHEET. PT SITTING OOB IN HER BEDSIDE CHAIR. PT MOANING AND GROINING. PT HAS HAD RECIEVED PERCOCET FROM THE OFF GOING RN. PT COMPLAINING OF BACK PAIN. WILL ADMINISTER MORPHINE. SEE JUN. NSR ON THE MONITOR. 4L VIA NC. RIGHT IJ CVL NOTED. SEE IV FLUIDS IN THE PTS FLOW SHEET. MID STERNAL DRESSING C/D/I. SUBSTERNAL DRESSING C/D/I. CT X3 PLUS A COMPRESSED ELAN DRAIN NOTED. BLOODY DRAINAGE NOTED. TPM WIRES CONNECTED TO THE PACEMAKER BUT THE PACEMAKER IS TURNED OFF PER DR WAKEFIELD. R RADIAL PRIYANKA NOTED. WITH WITH WRIST PROTECOR ON. GOOD WAVE FORM. FC NOTED WITH DARK CLEAR, YELLOW URINE. RLE HARVEST SITE DRESSING C/D/I. PT ABLE TO PULL ABOUT 500-750 ON HER IS. WEAK COUGH NOTED. INSTRUCTED TO TCDB Q1H AND TO USE HER IS 10X'S/H. CALL LIGHT IN REACH. WILL CONT POC.
--- NOTE | 2018-12-29 08:00 | NUR ---
BREAKFAST TRAY PROVIDED FOR THE PT.
--- NOTE | 2018-12-29 08:36 | NUR ---
DR WAKEFIELD AT THE PTS BEDSIDE. MADE AWARE THAT THE PTS STATED THAT 800 MG OF MOTRIN FIXES HER BACK PAIN. N.O RECIEVED FOR 15MG OF TORADOL IV.
--- NOTE | 2018-12-29 08:38 | OP ---
PATIENT NAME: GREGG ESPINO MEDICAL RECORD: [id number] :52 LOCATION:D.CVI D.CV04 ADMISSION DATE:12/24/18 SURGEON: WAYNE WAKEFIELD MD DATE OF OPERATION: 12/28/2018 SURGEON: Wayne Wakefield MD PRINCIPAL SOFTWARE ENGINEER: ELIAS Andrade MD and Ramon De La Garza. OPERATION PERFORMED: 1. Coronary artery bypass graft times 5 (left internal mammary artery to LAD, reverse saphenous vein graft from aorta to first obtuse marginal, from the side of that vein graft to the first diagonal distally, aorta to second obtuse marginal, aorta to posterior descending artery). 2. Endoscopic saphenous vein harvest. PREOPERATIVE DIAGNOSIS: Coronary artery disease with restenosis. POSTOPERATIVE DIAGNOSIS: Coronary artery disease with restenosis. ANESTHESIA: General endotracheal anesthesia. ESTIMATED BLOOD LOSS: Total cardiopulmonary bypass with Cell Saver retransfusion, 1 platelet due to preop Plavix. COMPLICATIONS: None. SPECIMENS: None. CONDITION: Stable. DISPOSITION: CV ICU. OPERATIVE FINDINGS: 1. Transesophageal echocardiography revealed normal appearing heart with moderate left ventricular hypertrophy and trace mitral regurgitation, no change after separation from cardiopulmonary bypass. 2. Good quality greater saphenous vein harvested endoscopically from the right lower extremity, larger caliber portion was used for the obtuse marginal and posterior lateral circumflex graft. 3. Normal appearing heart with severe distal disease in all vessels and bilateral hyperexpanded lungs, the right pleural cavity was entered on opening the chest. 4. Internal mammary was a good conduit. The LAD was severely diseased 1.5 mm vessel with good Doppler signal after anastomosis and after separation from cardiopulmonary bypass. 5. The first diagonal was a 1.25 mm severely diseased vessel. The smallest caliber portion of vein was used for this graft and the proximal limb was anastomosed end-to-side to the first obtuse marginal graft. 6. First obtuse marginal was a large vessel on the heart. It was severely diseased throughout including some of the intramyocardial portion and then 5-mm deep in the intramyocardial area. It was a 2.0-mm vessel. 7. Second obtuse marginal which was essentially a posterolateral circumflex branch was 1.5 mm with severe disease. 8. Posterior descending artery as expected had severe disease 1.5-mm vessel with OPERATIVE REPORT [id number] GREGG ESPINO split plaque for the anastomosis. OPERATIVE INDICATION: Coronary artery disease with critical recurrent in-stent stenosis. OPERATIVE SUMMARY IN DETAIL: The patient was brought to the operating suite. General anesthesia was obtained. The patient prepped and draped and greater saphenous vein harvested endoscopically from the right lower extremity. Side branches were divided with electrocautery. The vessel was ligated proximally and distally and removed. Dr. Andrade was the clerical dentist assistant surgeon for this case. He inspected the vein, tied the side branches, oversewed leakage sites and the use of an clerical dentist assistant surgeon saved general anesthetic time. Later, the leg was irrigated and closed in 2 layers and wrapped with an elastic wrap. Mediastinotomy incision was made. Subcutaneous tissue was divided by electrocautery. The sternum was divided with a saw. Left hemisternum was elevated. Left pleural cavity was entered. The right pleural cavity had been entered by opening the chest. The internal mammary artery and vein was taken down as a pedicle graft. Sternal retractor was placed. Pericardium was opened. Heparin was given. The area was cannulated. Dual stage venous cannula was inserted. The internal mammary was clipped distally and made ready for anastomosis. Activated clotting time was appropriately elevated. The patient was placed on cardiopulmonary bypass. Sites for distal anastomoses were selected. The patient's temperature was allowed to drift downwardly. Antegrade cardioplegia cannula was inserted. Crossclamp was placed. Cardioplegia was given antegrade. This repeated including down the completed vein grafts at 15 to 20 minute intervals during the crossclamp time. Distal anastomosis was performed in standard technique. Proximal anastomosis with single cross-clamp technique removing the cross clamp, deairing the aortic root, tying the proximal anastomoses restoring the flow. Then, a single end-to-side diagonal to the side of the obtuse marginal performed. The patient was defibrillated once, had sinus rhythm. Atrial and ventricular pacing wires were placed and the patient was paced due to moderate bradycardia. The patient eventually weaned from cardiopulmonary bypass and was stable. The patient was decannulated. The cannulation sites were oversewn. Protamine was given. Thorough irrigation was undertaken. Graft lay appropriately. Both chests were thoroughly evacuated and irrigated. The internal mammary harvest site inspected for bleeding. The pericardial fat was loosely reapproximated. Sternum was closed with a weave and then interrupted sternal wires. Fascia was closed. Subcutaneous tissue was closed. Skin was closed. Dermabond was placed. The needle and sponge counts reported as correct. The patient was taken to ICU in stable condition. TRANSINT:[id number] Voice Confirmation ID: [id number] DOCUMENT ID: [id number] OPERATIVE REPORT [id number] GREGG ESPINO, WAYNE Ballesteros MD at 0838 CC: ZENIA ECHEVARRIA M.D. and SHERRILL BENITES MD [id number] DICTATION DATE: 12/28/18 1557 DECONTAMINATION TECHNICIAN: 12/28/18 2343 ADM IN [facility] [address] [id number]
--- NOTE | 2018-12-29 09:53 | NUR ---
PT RESTING WITH HER EYES CLOSED. NO S/SX OF DISTRESS/DISOMFORT NOTED. CALL LIGHT IN REACH. WILL CONT POC.
--- NOTE | 2018-12-29 10:10 | NUR ---
RENATO INITIATED FOR HYPOTENSION.
--- NOTE | 2018-12-29 10:30 | NUR ---
PRIYANKA AKERS'Jamaal PER ORDERS. PT TOLERATED WELL.
--- NOTE | 2018-12-29 10:53 | NUR ---
Nutrition Follow-up: POD1 CABG. Extubated yesterday evening. Diet: Diabetic Wt: 167# Last BM: 12/24 per chart Labs reviewed Meds reviewed May consider cardiac carb consistent diet. [place] food preferences within diet restrictions. RD following.
--- NOTE | 2018-12-29 11:02 | NUR ---
PT COMPLAINED OF GENERLIZED PAIN. PRN PERCOCET GIVEN. SEE MAR.
--- NOTE | 2018-12-29 13:36 | NUR ---
PHYSCIAL THEARPY AMBULATED WITH THE PT 500 FEET. PT TOLERATED WELL. WILL CONT POC.
[2018-12-29 14:05] LABS: APPEARANCE HAZY (CLEAR); COLOR YELLOW (YELLOW); NITRITE NEGATIVE (NEGATIVE); PROTEIN NEGATIVE (NEGATIVE); SPECIFIC GRAVITY 1.015 (1.005-1.020)
[2018-12-29 14:06] LABS: BACTERIA FEW /hpf (NONE SEEN); BILIRUBIN NEGATIVE (NEGATIVE); EPITHELIAL CELLS 0-5 /hpf (0-5); GLUCOSE 250 mg/dL (NEGATIVE); KETONE SMALL mg/dL (NEGATIVE); RED CELLS - URINE 0-5 /hpf (0-5); UROBILINOGEN NORMAL (NORMAL); WHITE CELLS - URINE 0-5 /hpf (0-5)
[2018-12-29 14:07] LABS: HYALINE CAST 0-5 /lpf (NONE SEEN); MUCUS >1+ /lpf (NONE SEEN)
--- NOTE | 2018-12-29 15:40 | NUR ---
DR WAKEFIELD AT THE PTS BEDSIDE. GIVE 1MG MORPHINE NOW. SEE MAR. 3MG WASTED. CT A AND P DC'D PER DR WAKEFIELD. TPM WIRES COILED ELAN DRAIN REMAINS INTACT. DRESSING CHANGED PER ORDERS. DRESSING C/D/I. PT TOLERATED WELL. WILL CONT POC.
--- NOTE | 2018-12-29 17:00 | NUR ---
PT ASSISTED TO THE SIDE OF THE BED AND GIVEN HER DINNER. PT AT VERY LITTLE AND ASSISTED BACK INTO BED. CALL LIGHT IN REACH. WILL CONT POC.
--- NOTE | 2018-12-29 17:01 | MORECARE ---
CASE MANAGEMENT DISCHARGE SUMMARY PATIENT: GREGG ESPINO UNIT: [id number] ADM DATE: 12/24/18 AGE: 68 : 51 SEX: F [facility] AUTHOR: MARCEL,DOC PHYSICIAN: REFERRING PHYSICIAN: DAVID COLLAZO MD DATE OF SERVICE: 12/29/18 Discharge Plan Patient Name: GREGG ESPINO Facility: [facility]:[place] : 1950 Planned Disposition: Anticipated Discharge Date: Discharge Date: Expected LOS: Initial Reviewer: [email or web address] Initial Review Date: 12/24/2018 Generated: 12/29/18 6:01 pm Comments DCP- Discharge Planning Updated by [id number]: Jie Singleton on 12/29/18 3:[address] Patient Name: GREGG ESPINO Admission Status: ER Accout number: [id number] Admission Date: 12-24-2018 : 1950 Admission Diagnosis:CHEST PAIN, UNSPECIFIED Attending: DAVID COLLAZO Current LOS: 5 Anticipated DC Date: Planned Disposition: [facility] Discharge Planning Comments: CM MET WITH PATIENT ABOUT DC PLANNING/NEEDS. STATES PLANS TO DC TO HOME WITH . DOESN'T KNOW OF ANY NEEDS AT THIS TIME, SHE STATES SHE JUST HAD SURGERY FEW DAYS AGO. CM WILL FOLLOW AND ASSIST NEEDED. Conservation Scientist: Jie Singleton DCP- Discharge Planning Updated by [id number]: Reinier Slade on 12/28/18 9:[address] Patient Name: GREGG ESPINO Admission Status: ER Accout number: [id number] Admission Date: 12-24-2018 : 1950 Admission Diagnosis: Attending: DAVID COLLAZO Current LOS: 4 Anticipated DC Date: Planned Disposition: Primary Insurance: [facility] Discharge Planning Comments: CM ATTEMPTED TO MEET WITH PT FOR INITIAL ASSESSMENT OF DISCHARGE NEEDS. PT WAS NOT IN ROOM AT APPROXIMATELY 0955 HOURS. CM TO ATTEMPT ASSESSMENT AT LATER DATE AND TIME. Conservation Scientist: Reinier Slade DCPIA - Discharge Planning Initial Assessment Updated by [id number]: Jie Singleton on 12/29/18 4:52 pm * Is the patient Alert and Oriented? Yes * PCP [facility] * [facility] [place] * Preadmission Environment Home with Family * ADLs Independent * Equipment None * List name and contact numbers for known caregivers / representatives who currently or will assist patient after discharge: ZAHRA LUNSFORD, * Community resources currently utilized None * Has this patient been hospitalized within the prior 30 days at any hospital? No Last DP export: 12/28/18 9:10 am Patient Name: GREGG ESPINO Page [phone] at 1701 All edits/amendments must be made on the electronic document DICTATION DATE: 12/29/181699 RESTAURANT ASSISTANT MANAGER: RONNI 12/29/181699 RPT#: [id number] DC DATE: STATUS: ADM IN [facility] [address] [place] [address] END OF REPORT
--- NOTE | 2018-12-29 19:45 | NUR ---
PT RECEIVED IN BED WITH EYES OPEN. ON O2 3L VIA N/C. NO S/S OF DISTRESS. ELAN DRAIN COMPRESSED. JORGE PATENT. DRESSING TO MIDSTERNAL AND SUBSTERNAL C/D/I. NO OTHER NEEDS MADE KNOWN AT THIS TIME. CALL LIGHT IN REACH. WILL CONTINUE TO OBSERVE
--- NOTE | 2018-12-29 21:20 | NUR ---
RECEIVED HS MEDICATIONS TOLERATED WELL. WILL CONTINUE TO OBSERVE.
--- NOTE | 2018-12-29 23:15 | NUR ---
REASSESSMENT COMPLETED, SEE FLOW SHEET. CALL LIGHT IN REACH. WILL CONTINUE TO OBSERVE.
[2018-12-30] VITALS (47 sets, daily range): BP systolic 89–139; BP diastolic 44–82
--- NOTE | 2018-12-30 01:23 | NUR ---
PT WITH EYES CLOSED AND CHEST RISING. EASILY AWOKEN. PT WAKES AND BEGINS TO MOAN AND QUICKLY QUIETENS DOWN AFTER LEAVING ROOM AND CLOSES EYES.
--- NOTE | 2018-12-30 03:25 | NUR ---
REASSESSMENT COMPLETED, SEE FLOW SHEET. NO CONCERNS NOTED.
[2018-12-30 05:38] LABS: HEMATOCRIT 28.4 % (36.0-48.0); HEMOGLOBIN 9.6 g/dL (12-16); MCH 29.3 pg (26.0-34.0); MCHC 33.8 g/dL (31.0-37.0); MCV 86.6 fL (80.0-100.0); MEAN PLATELET VOLUME 9.8 fL (7.4-10.4); RBC 3.28 10x6/uL (4.00-5.40); RDW 14.5 % (11.5-14.5); WBC 12.8 10x3/uL (4.8-10.8)
--- NOTE | 2018-12-30 05:45 | NUR ---
PT GIVEN BATH AND TRANSFERED TO CHAIR BY ANOTHER NURSE WITH REPORT THAT PT TOLERATED WELL.
[2018-12-30 05:53] LABS: ALBUMIN 2.4 g/dL (3.4-5.0); ANION GAP 9.6 mmol/L (8-16); BILIRUBIN - TOTAL 0.97 mg/dL (0.2-1.3); CALCIUM 7.7 mg/dL (8.5-10.1); CARBON DIOXIDE 30.5 mmol/L (21.0-32.0); PROTEIN - SERUM 4.9 g/dL (6.4-8.2)
[2018-12-30 06:11] LABS: POTASSIUM - SERUM 4.1 mmol/L (3.5-5.1)
--- NOTE | 2018-12-30 06:55 | NUR ---
REPORT RECEIVE THAT PT HAS BECOME CONFUSED AND DISORIENTED TO PLACE. PT PICKING AT CVL SITE BUT NOT PULLING AT IT. PT REMINDED OF PURPOSE OF CVL AND IMPORTANCE OF NOT PULLING. ATTEMPT TO REORIENTATE ATTEMPTED BUT PT DENIES THAT SHE IS IN HOSPITAL AND STAFF ARE NOT NURSES.
--- NOTE | 2018-12-30 07:15 | NUR ---
NOTICED THE PT IS SITTING AT THE EDGE OF HER SITTING LOOKING LIKE SHE WAS TRYING TO GET OUT OF HER CHAIR. PT ALERT AND ORIENTED TO PERSON AND TIME ONLY. "IM NOT IN THE HOSPTIAL. WHERE IS EVERYBODY." ATTEMPTED TO REORIENT THE PT WITH OUT SUCCESS.
--- NOTE | 2018-12-30 07:30 | NUR ---
ATTEMPTED TO PLACE PRESSURE ALARM UNDER THE PT AND PT KEPT FIGHTING STAFF X5 DR WAKEFIELD IN THE UNIT AND NOTIFIED. HE ORDERED A SITTER FOR THE PT AND NOT TO GIVE NARCOTICS TO THE PT.
--- NOTE | 2018-12-30 07:35 | NUR ---
SPOKE WITH ANETA HANCOCK AND SHE STAED THAT WE ARE ONLY ALOUD TO HAVE A SITTER UNLESS THE PT IS SUICIDAL (WHICH SHE ISNT.) DR WAKEFIELD NOTIFIED
--- NOTE | 2018-12-30 08:09 | NUR ---
DR WAKEFIELD ORDERED FOR THE PT TO BE 1:1 DUE TO AMS.
--- NOTE | 2018-12-30 08:15 | NUR ---
REPORT RECEIVED FROM MENDEZ ALLEN. WILL CONT 1:1 CARE.
--- NOTE | 2018-12-30 08:20 | NUR ---
ATTEPMTED TO REORIENTE THE PT. PT KNOWS THAT SHE HAD A HEART SUGERY BYT KEEPS SAYING. "IM NOT IN THE HOSPITAL. WHWERE ARE ALL THE NURSES AND PATIENTS AT. I KNOW IM NOT STUPID." PT AWAKE BUT EXTREAMLY CONFUSED. ATTEPMTED TO GET BLOOD SUGAR AND PT KEEPS REFUSING. PT CONTINUES TO REFUSE AND EAT HER BREAKFAST. SHE STATS "MY WILL BRING ME SOME FOOD" WILL CONT 1:1 CARE.
--- NOTE | 2018-12-30 08:25 | NUR ---
ATTEPMTED TO ASSESS THE PT AND SEE KEPT PUPSHING MY HAND OUT OF THE WAY AND GRABING MY STETHESCOPE. UNABLE TO LISTEN TO THE PT OR OBSERVE SURICAL SITES. PT BEING UNCOOPERATIVE. VSS AT THIS TIME. WILL CONT 1:1 CARE.
--- NOTE | 2018-12-30 08:37 | NUR ---
PT ATTEPMTING TO PULL AT HER CVL AND ELAN DRAIN. GOT THE LINES AND CONCEALED THEM FORM THE PT. WAS ABLE TO SEE PARCIALLY THAT HER SUBSTERNAL AND MISTERNLA DRESSING ARE C/D/I. ELAN DRAIN COMPRESSED. CALL LIGHT IN REACH. WILL CONT POC. WILL CONT 1:1 CARE.
--- NOTE | 2018-12-30 09:00 | NUR ---
PT CONT TO PULL AT HER CVL AND ELAN DRAIN. MULTIPLE TIMES OF REORIENTATION ATTEPMTED WITH NO SUCCESS. PT TOOK OF BP CUFF AND PT IS ON RENATO. ATTEMPTED TO PUT THE BP CUFF BACK ON AND PT BECAME AGGRESSIVE AND STARTING HITTING AND KICKING STAFF. MORE NURSES AND PT AT THE PTS BESIDE FOR ASSISTANCE. PT PLACED BACK INTO BED FOR HER SAFTEY. PT KICKING AND PUNCHING STAFF. PT PLACED IN SOFT RESTRAINTS PER DR WAKEFIELD. VSS AT THIS TIME. WILL CONT 1:1 CARE.
--- NOTE | 2018-12-30 09:10 | NUR ---
CALLED AND NOTIFIED ABOUT THE PT COMBATIVE CONDITION. STATED HE WILL BE HERE AT NOON.
--- NOTE | 2018-12-30 09:30 | NUR ---
ATTEMPTED TO PUT THE PULSE OX ON THE PT X3 AND PT KEEPS FIGHTING/KICKING AND REMOVED PULSE OX. PT BREATHING EVEN AND UNLABORED ON RA. WILL CONT POC.
--- NOTE | 2018-12-30 09:39 | NUR ---
PT REFUSED TO TAKE HER MEDICATION. VERONICA ALLEN NOTIFIED
--- NOTE | 2018-12-30 10:27 | NUR ---
AT THE PTS BEDSIDE. PT CALMING DOWN BUT STILL VERY CONFUSED. VSS WILL CONT POC.
--- NOTE | 2018-12-30 10:30 | NUR ---
RENATO TITRATED OFF.
--- NOTE | 2018-12-30 10:32 | NUR ---
DR MUNOZ AT THE PTS BEDSIDE. PT STATED "YOUR NOT A DOCTOR". VSS NO NEW ORDERS AT THIS TIME. WILL CONT 1:1 CARE.
--- NOTE | 2018-12-30 11:16 | NUR ---
FAMILY AT THE PTS BEDSIDE. PT STILL VERY CONFUSED BUT CALM. ABLE TO ASSESS THE PT BUT PT WAS VERBALLY INNAPPROPRIATE WITH NAME CALLING. ABLE TO ASSESS FSBS. SEE FLOW SHEET FOR MORE DETAILS. WILL CONT 1:1 CARE.
--- NOTE | 2018-12-30 11:43 | NUR ---
FAMILY AT THE PTS BEDSIDE. PT UNRESTRAINED AND FAMILY ASSISTING THE BEDSIDE HELPING THE PT EAT.
--- NOTE | 2018-12-30 12:04 | NUR ---
ABLE TO PUT THE PTS PULSE OX ON. O2 HIGH 80'S LOW 90'S. O2 PLACED AT 2L VIA NC. PTS FAMILY MEMEBERS REMAIN AT THE PTS BEDSIDE. WILL CONT 1:1 CARE.
--- NOTE | 2018-12-30 12:18 | NUR ---
PT DID NOT EAT LUNCH BUT DRANK SOME TEA. PT STARTED THROWING UP. NO S/SX OF ASPIRATION NOTED. PRN ZOFRAN GIVEN. WILL CONT POC.
--- NOTE | 2018-12-30 12:35 | NUR ---
RECEIVED REPORT FROM ALEJANDRO JEAN. PATIENT IN BED RESTING WITH FAMILY MEMBER IN ROOM. VSS. WILL CONTINUE TO MONITOR
--- NOTE | 2018-12-30 13:51 | NUR ---
PT RETURNED FROM SWALLOW EVAL. HOOKED BACK UP RASHAWN MONITOR. VSS
--- NOTE | 2018-12-30 19:00 | NUR ---
SHIFT ASSESSMENT COMPLETE. VS STABLE. NO VISUAL CUES OF DISTRESS NOTED. WILL CONTINUE TO MONITOR.
[2018-12-31] VITALS (22 sets, daily range): BP systolic 101–156; BP diastolic 41–73
--- NOTE | 2018-12-31 04:00 | NUR ---
VS STABLE. NO VISUAL CUES OF DISTRESS NOTED. WILL MONITOR.
--- NOTE | 2018-12-31 04:00 | NUR ---
VS STABLE. NO VISUAL CUES OF DISTRESS NOTED. WILL MONITOR.
[2018-12-31 06:21] LABS: HEMATOCRIT 27.6 % (36.0-48.0); MCH 28.4 pg (26.0-34.0); MCHC 32.6 g/dL (31.0-37.0); MCV 87.1 fL (80.0-100.0); MEAN PLATELET VOLUME 10.3 fL (7.4-10.4); RBC 3.17 10x6/uL (4.00-5.40); RDW 14.4 % (11.5-14.5); WBC 10.7 10x3/uL (4.8-10.8)
--- NOTE | 2018-12-31 06:41 | NUR ---
ORAL CARE DONE
[2018-12-31 06:45] LABS: ALBUMIN 2.1 g/dL (3.4-5.0); ALKALINE PHOSPHATASE 96 U/L (46-116); ALT (SGPT) 38 U/L (10-68); BILIRUBIN - TOTAL 0.71 mg/dL (0.2-1.3); CALC OSMOLALITY 278 mosm/kg (275-300); CARBON DIOXIDE 30.6 mmol/L (21.0-32.0); CHLORIDE - SERUM 104 mmol/L (98-107); CREATININE - SERUM 0.8 mg/dL (0.6-1.3); GLUCOSE 165 mg/dL (74-106); PROTEIN - SERUM 4.9 g/dL (6.4-8.2); SODIUM 138 mmol/L (136-145); UREA NITROGEN 11 mg/dL (7-18); eGFR NON AFRICAN AMERICAN 76 mL/min (90-120)
--- NOTE | 2018-12-31 07:00 | NUR ---
RECEIVED BEDSIDE REPORT ON PATIENT AND ASSUMED CARE. PATIENT AWAKE AND ALERT, ORIENTED X 4, SITTING UP IN BEDSIDE CHAIR. VSS. BBS - CLEAR BUT DIMINSIHED. O2 VIA NC AT 4 LPM WIHT SPO2 - 90%, CM - SR RATE 100. RIGHT IJ CVL NSL. HEAD TO TOE ASSESSMENT COMPLETED.
--- NOTE | 2018-12-31 09:40 | NUR ---
PATIENT SITTING UP IN BEDSIDE CHAIR, VSS, HAS RUN OF V-TACH, RATE 137, PATIENT ALERT AND ORIENTED. DOES C/O OF ABDOMINAL PAIN 09/02. NO PAIN MEDICATION ORDERED ON JUN DUE TO ALTERED MENTAL STATUS YESTERDAY.
--- NOTE | 2018-12-31 10:05 | NUR ---
SPOKE TO DR. WAKEFIELD REGARDING PATIENT HAVING A RUN OF V-TACH, ORDERS STAT MAG. MAG DRAWN AND SENT TO LAB.
--- NOTE | 2018-12-31 10:34 | NUR ---
DR. COLLAZO AT ROOM UPDATED AND EXAMINES PATIENT.
--- NOTE | 2018-12-31 11:00 | NUR ---
REASSESSMENT COMPLETE. VSS. SITTING IN BEDSIDE CHAIR. EMPTIED ELAN DRAIN 90 CC SANGINOUS DRAINAGE. BULB COMPRESSED.
--- NOTE | 2018-12-31 11:55 | NUR ---
PATIENT GIVEN LUNCH TRAY.
--- NOTE | 2018-12-31 12:28 | NUR ---
DR. WAKEFIELD AT ROOM UPDATED AND EXAMINES PATIENT. TO START INTERMEDICATE SLIDING SCALE INSULIN, IN ADDITION TO, HER HOME MEDICAIION. WANTS TO INSURE THAT BLOOD SUGAR REMAINS UNDER 180.
--- NOTE | 2018-12-31 13:04 | NUR ---
PATIENT ATE APPROXIMATELY 50% OF LUNCH TRAY. VSS.
--- NOTE | 2018-12-31 13:24 | NUR ---
DR. WAKEFIELD OK TO DC JORGE CATHETER AND TO D/C 1:1 WITH SITTER FOR PATIENT.
--- NOTE | 2018-12-31 13:54 | NUR ---
PATIENT AMBULATORY TO BATHROOM WITH STANDBY ASSIST, VOIDS APPROXIMATEL 150 CC AND HAS SMALL BM, SOFT BROWN. BACK TO BEDSIDE CHAIR. VSS.
--- NOTE | 2018-12-31 14:53 | NUR ---
REASSESSMENT COMPLETE. VSS. ELAN DRAIN EMPTIED 70 CC SANGINOUS DRAINAGE, BULB COMPRESSED.
--- NOTE | 2018-12-31 16:57 | NUR ---
PATIENT AMBULATED TO BATHROOM, VOIDS 200 CC IVETT URINE AND HAS LARGE SOFT BM. BACK TO BEDSIDE CHAIR, GIVEN DINNER TRAY. VSS.
--- NOTE | 2018-12-31 17:24 | NUR ---
PATIENT ATE APPROXIMATELY 50% OF DINNER TRAY. AMBULATES TO BED AND RESTING QUIETY. VSS.
[2019-01-01] VITALS (14 sets, daily range): BP systolic 104–152; BP diastolic 51–77
[2019-01-01 06:21] LABS: HEMATOCRIT 28.4 % (36.0-48.0); HEMOGLOBIN 9.4 g/dL (12-16); MCH 29.2 pg (26.0-34.0); MCHC 33.1 g/dL (31.0-37.0); MCV 88.2 fL (80.0-100.0); MEAN PLATELET VOLUME 9.7 fL (7.4-10.4); RBC 3.22 10x6/uL (4.00-5.40); RDW 14.6 % (11.5-14.5); WBC 8.3 10x3/uL (4.8-10.8)
[2019-01-01 06:38] LABS: ALBUMIN 2.1 g/dL (3.4-5.0); ALKALINE PHOSPHATASE 87 U/L (46-116); ALT (SGPT) 32 U/L (10-68); BILIRUBIN - TOTAL 0.64 mg/dL (0.2-1.3); CALC OSMOLALITY 278 mosm/kg (275-300); CARBON DIOXIDE 31.5 mmol/L (21.0-32.0); CHLORIDE - SERUM 106 mmol/L (98-107); CREATININE - SERUM 0.6 mg/dL (0.6-1.3); GLUCOSE 124 mg/dL (74-106); POTASSIUM - SERUM 4.9 mmol/L (3.5-5.1); PROTEIN - SERUM 5.1 g/dL (6.4-8.2); SODIUM 140 mmol/L (136-145); UREA NITROGEN 11 mg/dL (7-18); eGFR NON AFRICAN AMERICAN > 90 mL/min (90-120)
--- NOTE | 2019-01-01 07:00 | NUR ---
PT UP IN CHAIR. DAILY DRESSINGS CHANGED. CHG BATH GIVEN. VS STABLE. NOTIFIED ONCOMING SHIFT. NO DISTRESS NOTED.
--- NOTE | 2019-01-01 07:45 | NUR ---
SHIFT REPORT RECEIVED. PT UP IN CHAIR. AA&OX4. DENIES ANY PAIN AT THIS TIME. ON 4L OF O2 VIA NC. MIDSTERNAL DRESSING C/D/I. SUBSTERNAL DRESSING C/D/I. ELAN DRAIN IN PLACE WITH SEROSANG DRAINAGE NOTED. RLE HARVEST SITE HEALING ADEQUATELY. NO DRAINAGE NOTED. NO FEVER NOTED. VSS. COMPLETE SHIFT ASSESSMENT CHARTED IN FLOW SHEET. CALL LIGTH IN REACH. MEAL TRAY DELIVERED AND SET UP. NO FURTHER NEEDS. WILL CONTINUE TO MONITOR.
--- NOTE | 2019-01-01 08:40 | NUR ---
AM MEDS GIVEN. PT RESTING COMFORTABLY. SPOUSE NOT HERE AT THIS TIME. ATE ABOUT 50% OF BREAKFAST. DENIES FURTHER NEEDS AT THIS TIME. WILL CONTINUE TO MONITOR.
--- NOTE | 2019-01-01 10:00 | NUR ---
PT APPEARS ASLEEP. VSS. WILL CONTINUE TO MONITOR.
--- NOTE | 2019-01-01 11:20 | NUR ---
RE-ASSESSMENT COMPLETED. NO ACUTE CHANGES FROM PREVIOUS ASSESSMENT. VSS. NO FEVER NOTED. CALL LIGHT IN REACH. WILL CONTINUE TO MONITOR.
--- NOTE | 2019-01-01 13:00 | NUR ---
ATE ABOUT 40% OF MEAL. SPOUSE AT BEDSIDE. PT DENIES ANY NEEDS AT THIS TIME. WILL CONTINUE TO MONITOR.
--- NOTE | 2019-01-01 15:00 | NUR ---
REASSESSMENT COMPLETED COMPLETED. NO ACUTE CHANGES FROM PREVIOUS ASSESSEMENT. VSS. TEMPERATURE 99.8. CONITNUED TO ENCOURAGE I.S. PT PULLS 500 ON I.S. DENIES ANY PAIN. WILL CONTINUE TO MONITOR.
--- NOTE | 2019-01-01 17:00 | NUR ---
MEAL TRAY DELIVERED AND SET UP. CUP OF ICE PROVIDED. SPOUSE NOT IN ROOM. PT DENIES FURTHER NEEDS. WILL CONTINUE TO MONITOR.
--- NOTE | 2019-01-01 19:20 | NUR ---
REPORT RECEIVED, SHIFT ASSESSMENT COMPLETED PER FLOW SHEET, SEE FOR DETAILS. AAOX4. DENIES NEEDS. CALL LIGHT WITHIN REACH. WILL CONTINUE TO MONITOR.
--- NOTE | 2019-01-01 21:05 | NUR ---
SCHEDULED MEDS GIVEN, WATER PROVIDED, TOLERATED WELL. DENIES NEEDS. CALL LIGHT WITHIN REACH. WILL CONTINUE TO MONITOR.
--- NOTE | 2019-01-01 23:41 | NUR ---
REASSESSMENT COMPLETED PER FLOW SHEET, SEE FOR DETAILS. NO ACUTE CHANGES NOTED. DENIES NEEDS. CALL LIGHT WITHIN REACH.
[2019-01-02] VITALS (25 sets, daily range): BP systolic 129–184; BP diastolic 65–112
--- NOTE | 2019-01-02 01:00 | NUR ---
DENIES NEEDS, NO ACUTE CHANGES NOTED, WILL CONTINUE TO MONITOR.
--- NOTE | 2019-01-02 03:14 | NUR ---
REASSESSMENT COMPLETED PER FLOW SHEET, SEE FOR DETAILS. NO ACUTE DISTRESS NOTED. DENIES NEEDS. CALL LIGHT WITHIN REACH. WILL CONTINUE TO MONITOR.
--- NOTE | 2019-01-02 05:00 | NUR ---
RESTING IN BED, NO ACUTE DISTRESS NOTED, DENIES NEEDS. CALL LIGHT WITHIN REACH.
--- NOTE | 2019-01-02 06:00 | NUR ---
CHG BATH GIVEN, ASSISSTED TO CHAIR, TOLERATED WELL. CALL LIGHT WITHIN REACH. WILL CONTINUE TO MONITOR.
[2019-01-02 06:38] LABS: HEMATOCRIT 32.5 % (36.0-48.0); HEMOGLOBIN 10.7 g/dL (12-16); MCH 29.1 pg (26.0-34.0); MCHC 32.9 g/dL (31.0-37.0); MCV 88.3 fL (80.0-100.0); MEAN PLATELET VOLUME 9.9 fL (7.4-10.4); RBC 3.68 10x6/uL (4.00-5.40); RDW 14.3 % (11.5-14.5); WBC 7.8 10x3/uL (4.8-10.8)
[2019-01-02 07:23] LABS: ALBUMIN 2.2 g/dL (3.4-5.0); ALKALINE PHOSPHATASE 89 U/L (46-116); ALT (SGPT) 36 U/L (10-68); BILIRUBIN - TOTAL 0.56 mg/dL (0.2-1.3); CALC OSMOLALITY 278 mosm/kg (275-300); CALCIUM 8.8 mg/dL (8.5-10.1); CARBON DIOXIDE 29.1 mmol/L (21.0-32.0); CHLORIDE - SERUM 104 mmol/L (98-107); CREATININE - SERUM 0.8 mg/dL (0.6-1.3); GLUCOSE 117 mg/dL (74-106); POTASSIUM - SERUM 4.6 mmol/L (3.5-5.1); PROTEIN - SERUM 6.1 g/dL (6.4-8.2); SODIUM 140 mmol/L (136-145); UREA NITROGEN 10 mg/dL (7-18); eGFR NON AFRICAN AMERICAN 76 mL/min (90-120)
--- NOTE | 2019-01-02 09:29 | NUR ---
0700 PT RECIEVED UP IN CHAIR ALERT AND OREINTED O2 4L NC, R IJ CVL DRESSING CDI, SL, MIDSTERNAL AND SUBSTERNAL DRESSINGS CDI WITH ELAN DRAIN COMPRESSED, RLE HARVEST SITES CDI 0800 BREAKFAST SERVED 0900 AM MEDS GIVEN, DR EMERSON NURSE DOROTA HERE AND NOTIFIED OF PTS COMPLAINTS OF PAIN WITH ORDERS TO GIVE TYLENOL FOR NOW
--- NOTE | 2019-01-02 09:32 | NUR ---
SPOKE WITH BILL IN PHARMACY FOR [facility]
--- NOTE | 2019-01-02 10:01 | NUR ---
PT CONTINUES TO COMPLAIN OF PAIN TO DRAIN SITE AFTER AMBULATING WITH PT, APPROX 30ML SEROSANG DRAINAGE IN BULB, NOTIFIED DR EMERSON NURSE DOROTA WHO SAID TO DEFER TO DR COLLAZO, DR COLLAZO ORDERED TORADOL, ORDER READ BACK AND ALSO RELAYED TO DOROTA ALLEN
--- NOTE | 2019-01-02 10:33 | NUR ---
DCD TORADOL PER DR WAKEFIELD
--- NOTE | 2019-01-02 10:39 | NUR ---
Nutrition Follow-up: Fair appetite/PO intake. Pt c/o altered taste. Diet: Diabetic PO intake: 50% avg x 6 meals Wt: 166# Last BM: 01/02 Labs reviewed Meds reviewed May consider cardiac carb consistent diet. Pt agreed to try Glucerna; will receive at lunch today. RD following.
--- NOTE | 2019-01-02 13:15 | NUR ---
1100 ASSISTED TO BED AND TPM WIRE/ELAN REMOVED BY DR EMERSON NURSE 1200 ASSISTED UP TO CHAIR AND LUNCH SERVED 1300 DR EMERSON NURSE DOROTA NOTIFIED OF CONTINUES HTN
--- NOTE | 2019-01-02 14:37 | NUR ---
22G R HAND PIV X1, CVL DCD PER PROTOCOL
--- NOTE | 2019-01-02 17:09 | NUR ---
NOTIFIED DR WAKEFIELD OF BP 170/95 ORDERS FOR ONE TIME HYDRALAZINE
--- NOTE | 2019-01-02 18:30 | NUR ---
ORAL CARE DONE WITH PERIDEX
--- NOTE | 2019-01-02 19:12 | NUR ---
REPORT RECEIVED, SHIFT ASSESSMENT COMPLETED PER FLOW SHEET, SEE FOR DETAILS. ASSISSTED TO BR, PER PATIENT'S REQUEST. AMBULATES INDEPENDENTLY WITHOUT ANY PROBLEMS. GAIT STEADY. VOID X1. AMBULATED BACK TO BED WITHOUT ASSISSTANCE. DENIES FURTHER NEEDS. CALL LIGHT WITHIN REACH. WILL CONTINUE TO MONITOR. 2054 SCHEDULED MEDS GIVEN, SEE EMAR FOR DETAILS. WATER PROVIDED. TOLERATED WELL. 2148 BP ELEVATED, PATIENT DENIES PAIN. CONTACTED DR. WAKEFIELD, NO ANSWER. WILL TRY AGAIN. 2251 BP STILL ELEVATED. PATIENT DENIES PAIN. CONTACTED DR. WAKEFIELD, UPDATE GIVEN ON PATIENT'S CURRENT STATUS, MEDS REVIEWED. NEW ORDERS RECEIVED, SEE ORDERS FOR DETAILS. 2302 REASSESSMENT COMPLETED PER FLOW SHEET, SEE FOR DETAILS. DENIES PAIN OR NEEDS. CALL LIGHT WITHIN REACH. WILL CONTINUE TO MONITOR.
[2019-01-03] VITALS (22 sets, daily range): BP systolic 109–181; BP diastolic 57–102
--- NOTE | 2019-01-03 01:00 | NUR ---
RESTING, DENIES NEEDS, CALL LIGHT WITHIN REACH. 0311 REASSESSMENT COMPLETED PER FLOW SHEET, SEE FOR DETAILS. WILL CONTINUE TO MONITOR. 0450 BP ELEVATED, CALLED AND SPOKE TO DR. WAKEFIELD, NEW ORDERS RECEIVED, SEE ORDERS FOR DETAILS. 0600 ASSISSTED OOB TO CHAIR, TOLERATED WELL. CALL LIGHT WITHIN REACH. WILL CONTINUE TO MONITOR.
--- NOTE | 2019-01-03 11:57 | NUR ---
DR WAKEFIELD NOTIFIED OF DR GRADY ORDERS AND ORDERED TO DC YSABEL ORDERS AND RETURN TO PREVIOUS ORDERS
--- NOTE | 2019-01-03 12:01 | NUR ---
DR WAKEFIELD IN UNIT ORDERS TO KEEP NORVASC AND RETURN LISINOPRIL TO 5MG
--- NOTE | 2019-01-03 13:10 | NUR ---
0700 PT RECIEVED UP IN CHAIR O2 4L NC R HAND PIV SL, MIDSTERNAL DRESSING CDI, SUBSTERNAL PREVIOUS TPM WIRES, ELAN DRAIN, CT SITES CDI, RLE HARVEST SITES WITH GLUE CDI 0800 BREAKFAST TRAY REFUSED 0900 AM MEDS GIVEN 1000 AMBULATED WITH PT 1100 ASSISTED WITH BATH 1200 LUNCH TRAY PROVIDED 1300 DR WAKEFIELD IN ROOM ORDERS TO DC POSITIVE PRESSURE UPDRAFTS, RT NOTIFIED
--- NOTE | 2019-01-03 16:20 | NUR ---
REPORT GIVEN TO MONTEZ ALLEN
--- NOTE | 2019-01-03 16:57 | NUR ---
DINNER TRAY PROVIDED FOR THE PT.
--- NOTE | 2019-01-03 18:32 | NUR ---
ORAL CARE DONE WITH PERIDEX
--- NOTE | 2019-01-03 19:12 | NUR ---
REPORT RECEIVED, SHIFT ASSESSMENT COMPLETED PER FLOW SHEET, SEE FOR DETAILS. AAOX4. DENIES PAIN OR NEEDS. CALL LIGHT WITHIN REACH. 2105 SCHEDULED MEDS GIVEN, SEE EMAR FOR DETAILS. DENIES NEEDS. WILL CONTINUE TO MONITOR. 2300 REASSESSMENT COMPLETED PER FLOW SHEET, SEE FOR DETAILS. DENIES NEEDS. CALL LIGHT WITHIN REACH. 0100 RESTING, NO ACUTE DISTRESS NOTED. DENIES NEEDS. CALL LIGHT WITHIN REACH.
[2019-01-04] VITALS (12 sets, daily range): BP systolic 128–164; BP diastolic 67–88
--- NOTE | 2019-01-04 03:02 | NUR ---
REASSESSMENT COMPLETED PER FLOW SHEET, SEE FOR DETAILS. DENIES NEEDS. CALL LIGHT WITHIN REACH. 0500 DENIES NEEDS AT THIS TIME. WILL CONTINUE TO MONITOR. 0600 PATIENT INDEPENDENTLY GAVE SELF CHG BATH, WITHOUT ANY PROBLEMS. ASSISSTED TO CHAIR. DENIES OTHER NEEDS. CALL LIGHT WITHIN REACH.
--- NOTE | 2019-01-04 10:31 | NUR ---
Nutrition Follow-up: Pt reports that appetite has not really improved. Did not like Glucerna. Noted possible d/c home today. Diet: Diabetic PO intake: 57% avg yesterday Wt: 157# Last BM: 01/04 Labs reviewed Meds reviewed Continue current diet as tolerated. [place] food preferences within diet restrictions. RD following.
[2019-01-04] MEDS ORDERED: NORVASC2.5 MG PO (13:53)
[2019-01-04] MEDS ORDERED: ASPIRIN EC81 M1 PO (13:54)
--- NOTE | 2019-01-04 14:31 | TEE ---
PATIENT:GREGG ESPINO MEDICAL RECORD: [id number] LOCATION:[place] [address] AGE OF PATIENT: 68 ADMISSION DATE: 12/24/18 SEX: F REFERRING PHYSICIAN: INTERPRETING PHYSICIAN: AGUSTIN ISIDRO MD TRANSESOPHAGEAL ECHOCARDIOGRAM Date: 12/28/18 CHRIST CHARGE Y INDICATIONS: CABG PREMEDICATIONS: PATIENT'S RESPONSE PROCEDURE DOPPLER MEASUREMENTS: LVIT LA 3.4 PA RA LVOT RVOT Asc. Ao AV Gradient Peak AV Mean AV Area MV Gradient Peak MV Mean MV Area INTERPRETATION: Doppler: 2-D: COLOR FLOW DOPPLER NORMAL SALINE STUDY: MISCELLANOUS: DIAGNOSIS: PLAN: Hydraulic Miner:Jennifer Castillo Violin Tutor: Arnold DANIEL COMMENTS: DATE OF SERVICE: 12/28/2018 PROCEDURE: Transesophageal echo evaluation of valvular structures during bypass surgery. FINDINGS: 1. Left ventricular chamber size is within normal limits. Left ventricular systolic function is normal. Overall ejection fraction estimated at 55%. 2. Left atrium, right atrium and right ventricular chambers sizes are within TRANSESOPHAGEAL ECHOCARDIOGRAM REPORT [id number] GREGG ESPINO normal limits. 3. Valvular structures have normal structure and motion. 4. Doppler interrogation reveals only trace to mild mitral regurgitation, no other valvular insufficiency or stenosis. 5. No evidence of pericardial effusion or left ventricular thrombus. TRANSINT:[id number] Voice Confirmation ID: [id number] DOCUMENT ID: [id number] at 1431 CC: [id number] DICTATION DATE: 12/28/18 1546 HOOP DRIVING MACHINE OPERATOR HELPER: 12/29/18 0047 ADM IN [place] [id number] [place] [address]
--- NOTE | 2019-01-04 20:00 | MORECARE ---
CASE MANAGEMENT DISCHARGE SUMMARY PATIENT: GREGG ESPINO UNIT: [id number] ADM DATE: 12/24/18 AGE: 68 : 51 SEX: F ROOM/BED: D.[facility] AUTHOR: MARCEL,DOC PHYSICIAN: REFERRING PHYSICIAN: DAVID COLLAZO MD DATE OF SERVICE: 01/04/19 Discharge Plan Patient Name: GREGG ESPINO Facility: [facility]:[place] : 1950 Planned Disposition: Anticipated Discharge Date: Discharge Date: 01/04/2019 Expected LOS: Initial Reviewer: [id number] Initial Review Date: 12/24/2018 Generated: 01/04/19 8:59 pm Comments DCP- Discharge Planning Updated by [email or web address]: Megan Hilliard on 01/04/19 6:[address] CM spoke with patient she was concerned about being able to pay for all her hospital bills. CM spoke with [employer] to see if patient might qualify for Medicaid as a secondary insurance. [employer] plans to see patient and evaluate. D/C Imm signed at 1430. CM will continue to follow and assist as needed with discharge planning / needs. DCP- Discharge Planning Updated by [email or web address]: Jie Singleton on 12/29/18 3:[address] Patient Name: GREGG ESPINO Admission Status: ER Accout number: [id number] Admission Date: 12-24-2018 : 1950 Admission Diagnosis:CHEST PAIN, UNSPECIFIED Attending: DAVID COLLAZO Current LOS: 5 Anticipated DC Date: Planned Disposition: Primary Insurance: [employer] Discharge Planning Comments: CM MET WITH PATIENT ABOUT DC PLANNING/NEEDS. STATES PLANS TO DC TO HOME WITH . DOESN'T KNOW OF ANY NEEDS AT THIS TIME, SHE STATES SHE JUST HAD SURGERY FEW DAYS AGO. CM WILL FOLLOW AND ASSIST NEEDED. Gut Dropper: Jie Singleton DCP- Discharge Planning Updated by [email or web address]: Reinier Slade on 12/28/18 9:[address] Patient Name: GREGG ESPINO Admission Status: ER Accout number: [id number] Admission Date: 12-24-2018 : 1950 Admission Diagnosis: Attending: DAVID COLLAZO Current LOS: 4 Anticipated DC Date: Planned Disposition: Primary Insurance: [employer] Discharge Planning Comments: CM ATTEMPTED TO MEET WITH PT FOR INITIAL ASSESSMENT OF DISCHARGE NEEDS. PT WAS NOT IN ROOM AT APPROXIMATELY 0955 HOURS. CM TO ATTEMPT ASSESSMENT AT LATER DATE AND TIME. Gut Dropper: Reinier Slade DCPIA - Discharge Planning Initial Assessment Updated by [email or web address]: Jie Singleton on 12/29/18 4:52 pm * Is the patient Alert and Oriented? Yes * PCP ANTHONY * [facility] [place] * Preadmission Environment Home with Family * ADLs Independent * Equipment None * List name and contact numbers for known caregivers / representatives who currently or will assist patient after discharge: ZAHRA LUNSFORD, * Community resources currently utilized None * Has this patient been hospitalized within the prior 30 days at any hospital? No Coverage Notice Reviewer: [email or web address] Zan Hilliard Notice Issued Date-Time: 01/04/2019 14:30 Notice Type: IM Discharge Notice Notice Delivered To: Patient Relationship to Patient: Self Tube Roller Name: Delivery Method: HAND - Hand Delivered Mervat Days: Prior Verbal Notification: Recipient Understood Notice: Yes Recipient Signature: Yes Med Rec Note Co-signed by Attending: Coverage Notice Comment: Last DP export: 12/29/18 4:01 pm Patient Name: GREGG ESPINO Page 48045 at 2000 All edits/amendments must be made on the electronic document DICTATION DATE: 01/04/191958 ALUM PLANT SUPERVISOR: RONNI 01/04/191958 RPT#: [id number] DC DATE:01/04/19 STATUS: DIS IN [facility] [address] [place] [address] END OF REPORT
--- NOTE | 2019-01-05 09:24 | MORECARE ---
CASE MANAGEMENT DISCHARGE SUMMARY PATIENT: GREGG ESPINO UNIT: [id number] ADM DATE: 12/24/18 AGE: 68 : 51 SEX: F ROOM/BED: D[facility] AUTHOR: MARCEL,DOC PHYSICIAN: REFERRING PHYSICIAN: DAVID COLLAZO MD DATE OF SERVICE: 01/05/19 Discharge Plan Patient Name: GREGG ESPINO Facility: [facility]:[place] : 1950 Planned Disposition: Anticipated Discharge Date: Discharge Date: 01/04/2019 Expected LOS: Initial Reviewer: [email or web address] Initial Review Date: 12/24/2018 Generated: 01/05/19 10:24 am Comments DCP- Discharge Planning Updated by [email or web address]: Megan Hilliard on 01/04/19 6:[address] CM spoke with patient she was concerned about being able to pay for all her hospital bills. CM spoke with [employer] to see if patient might qualify for Medicaid as a secondary insurance. [employer] plans to see patient and evaluate. D/C Imm signed at 1430. CM will continue to follow and assist as needed with discharge planning / needs. DCP- Discharge Planning Updated by [email or web address]: Jie Singlteon on 12/29/18 3:[address] Patient Name: GREGG ESPINO Admission Status: ER Accout number: [id number] Admission Date: 12-24-2018 : 1950 Admission Diagnosis:CHEST PAIN, UNSPECIFIED Attending: DAVID COLLAZO Current LOS: 5 Anticipated DC Date: Planned Disposition: Primary Insurance: [employer] Discharge Planning Comments: CM MET WITH PATIENT ABOUT DC PLANNING/NEEDS. STATES PLANS TO DC TO HOME WITH . DOESN'T KNOW OF ANY NEEDS AT THIS TIME, SHE STATES SHE JUST HAD SURGERY FEW DAYS AGO. CM WILL FOLLOW AND ASSIST NEEDED. Rn Travel: Jie Singleton DCP- Discharge Planning Updated by [email or web address]: Reinier Slade on 12/28/18 9:[address] Patient Name: GREGG ESPINO Admission Status: ER Accout number: [id number] Admission Date: 12-24-2018 : 1950 Admission Diagnosis: Attending: DAVID COLLAZO Current LOS: 4 Anticipated DC Date: Planned Disposition: [facility] Discharge Planning Comments: CM ATTEMPTED TO MEET WITH PT FOR INITIAL ASSESSMENT OF DISCHARGE NEEDS. PT WAS NOT IN ROOM AT APPROXIMATELY 0955 HOURS. CM TO ATTEMPT ASSESSMENT AT LATER DATE AND TIME. Rn Travel: Reinier Slade DCPIA - Discharge Planning Initial Assessment Updated by [email or web address]: Jie Singleton on 12/29/18 4:52 pm * Is the patient Alert and Oriented? Yes * PCP ANTHONY * [facility] [place] * Preadmission Environment Home with Family * ADLs Independent * Equipment None * List name and contact numbers for known caregivers / representatives who currently or will assist patient after discharge: ZAHRA LUNSFORD, * Community resources currently utilized None * Has this patient been hospitalized within the prior 30 days at any hospital? No Coverage Notice Reviewer: [id number] Zan Hilliard Notice Issued Date-Time: 01/04/2019 14:30 Notice Type: IM Discharge Notice Notice Delivered To: Patient Relationship to Patient: Self Column Precaster Name: Delivery Method: HAND - Hand Delivered Mervat Days: Prior Verbal Notification: Recipient Understood Notice: Yes Recipient Signature: Yes Med Rec Note Co-signed by Attending: Coverage Notice Comment: Last DP export: 01/04/19 7:00 p Patient Name: GREGG ESPINO Page 15941 at 0924 All edits/amendments must be made on the electronic document DICTATION DATE: 01/05/19923 SIGNAL WORKER: RONNI 01/05/19923 RPT#: [id number] DC DATE:01/04/19 STATUS: DIS IN [place] [id number] [place] [address] END OF REPORT
== END 2019-01-04 15:10 | disposition home or self-care (01) | DRG 233 ==
LOC: D.ER 08:28 → D.M2 09:13 → OBSVTIME 09:13 → D.M2 09:13 → D.CVICU 18:10 → D.M2 18:10 → D.CVICU 12-28 11:06
PROVIDERS: Family Medicine; Internal Medicine Cardiovascular Disease; Thoracic Surgery (Cardiothoracic Vascular Surgery); ADMIT Internal Medicine Nephrology; ATTEND Internal Medicine Nephrology
PROC: B211YZZ Fluoroscopy of Multiple Coronary Arteries using Other Contrast (ICD-10-PCS; 2018-12-24)
PROC: B215YZZ Fluoroscopy of Left Heart using Other Contrast (ICD-10-PCS; principal; 2018-12-24 11:00)
PROC: 021 Heart and Great Vessels, Bypass (ICD-10-PCS; 2018-12-28)
DX: I97.190 Other postprocedural cardiac functional disturbances following cardiac surgery (principal); I21.A9 Other myocardial infarction type; T82.857A Stenosis of other cardiac prosthetic devices, implants and grafts, initial encounter; N17.9 Acute kidney failure, unspecified; I25.110 Atherosclerotic heart disease of native coronary artery with unstable angina pectoris; I10 Essential (primary) hypertension; E83.42 Hypomagnesemia; E78.5 Hyperlipidemia, unspecified; E11.9 Type 2 diabetes mellitus without complications; E03.9 Hypothyroidism, unspecified

== ENCOUNTER → 2019-01-13 10:20 | Outpatient (CLI) | payer OTHER ==
[2018-12-27 14:14] VITALS: BMI 26.3
[~2019-01-13 10:20] MED LIST changes: +ASPIRIN EC81 M1 PO; +GLUCOPHAGE1000 MG PO; +HYDROCODON-ACE1 EAC7 PO; +LIPITOR20 MG PO; +NORVASC2.5 MG PO; +ZANAFLEX4 MG PO
== END | disposition home or self-care (01) ==
LOC: D.RAD 10:20
PROVIDERS: ATTEND Thoracic Surgery (Cardiothoracic Vascular Surgery)
DX: R91.8 Other nonspecific abnormal finding of lung field (principal); J90 Pleural effusion, not elsewhere classified

== ENCOUNTER 2019-02-07 18:47 | Emergency (ER) | payer OTHER ==
[~2019-02-07] VITALS: Ht 167.6 cm; Wt 63.6 kg
[2019-02-07 18:55] VITALS: Ht 167.6 cm; Wt 63.6 kg
[2019-02-07 19:22] LABS: BASOPHILS 0.2 % (0-2); EOSINOPHILS 1.5 % (0-7); HEMATOCRIT 34.1 % (36.0-48.0); HEMOGLOBIN 11.3 g/dL (12-16); IMMATURE GRANULOCYTES 0.3 % (0-5); LYMPHOCYTES 45.8 % (15-50); MCH 29.3 pg (26.0-34.0); MCHC 33.1 g/dL (31.0-37.0); MCV 88.3 fL (80.0-100.0); MEAN PLATELET VOLUME 9.2 fL (7.4-10.4); NEUTROPHILS 45.2 % (40-80); PLATELET COUNT 322 10x3/uL (130-400); RBC 3.86 10x6/uL (4.00-5.40); RDW 12.9 % (11.5-14.5)
[2019-02-07 19:32] LABS: APTT 28.5 SECONDS (22.8-39.4); INR 1.13 (0.85-1.17)
[2019-02-07 19:38] LABS: ALBUMIN 3.4 g/dL (3.4-5.0); ALKALINE PHOSPHATASE 85 U/L (46-116); ALT (SGPT) 11 U/L (10-68); BILIRUBIN - TOTAL 0.35 mg/dL (0.2-1.3); CALC OSMOLALITY 276 mosm/kg (275-300); CALCIUM 8.7 mg/dL (8.5-10.1); CARBON DIOXIDE 30.1 mmol/L (21.0-32.0); CHLORIDE - SERUM 104 mmol/L (98-107); CREATININE - SERUM 0.9 mg/dL (0.6-1.3); GLUCOSE 98 mg/dL (74-106); POTASSIUM - SERUM 4.3 mmol/L (3.5-5.1); PROTEIN - SERUM 7.5 g/dL (6.4-8.2); SODIUM 140 mmol/L (136-145); UREA NITROGEN 8 mg/dL (7-18); eGFR NON AFRICAN AMERICAN 66 mL/min (90-120)
[2019-02-07 19:52] LABS: CKMB 0.4 U/L (0.0-3.6); CREATINE KINASE 27 UL (21-215); MAGNESIUM - SERUM 1.1 mg/dL (1.8-2.4); TROPONIN-I < 0.017 ng/mL (0.000-0.060)
[2019-02-07 21:47] VITALS: BP 112/63
== END 2019-02-07 21:47 | disposition home or self-care (01) ==
LOC: D.ER 18:47
PROVIDERS: Family Medicine
DX: R07.9 Chest pain, unspecified (principal); I25.10 Atherosclerotic heart disease of native coronary artery without angina pectoris; Z95.1 Presence of aortocoronary bypass graft; I10 Essential (primary) hypertension; E11.9 Type 2 diabetes mellitus without complications

== ENCOUNTER 2019-05-03 13:43 | Emergency (ER) | payer OTHER ==
[~2019-05-03] VITALS: Ht 167.6 cm; Wt 61.8 kg
[2019-05-03 13:53] VITALS: Ht 167.6 cm; Wt 61.8 kg
[2019-05-03 14:26] LABS: BASOPHILS 0.3 % (0-2); HEMATOCRIT 39.6 % (36.0-48.0); HEMOGLOBIN 12.9 g/dL (12-16); IMMATURE GRANULOCYTES 0.2 % (0-5); LYMPHOCYTES 41.2 % (15-50); MCH 28.6 pg (26.0-34.0); MCHC 32.6 g/dL (31.0-37.0); MCV 87.8 fL (80.0-100.0); MEAN PLATELET VOLUME 9.7 fL (7.4-10.4); MONOCYTES 6.2 % (2-11); NEUTROPHILS 50.1 % (40-80); PLATELET COUNT 289 10x3/uL (130-400); RBC 4.51 10x6/uL (4.00-5.40); RDW 13.9 % (11.5-14.5); WBC 6.6 10x3/uL (4.8-10.8)
[2019-05-03 15:10] LABS: CALC OSMOLALITY 282 mosm/kg (275-300); CALCIUM 9.4 mg/dL (8.5-10.1); CARBON DIOXIDE 30.1 mmol/L (21.0-32.0); CHLORIDE - SERUM 103 mmol/L (98-107); CREATININE - SERUM 0.8 mg/dL (0.6-1.3); GLUCOSE 99 mg/dL (74-106); POTASSIUM - SERUM 4.1 mmol/L (3.5-5.1); SODIUM 142 mmol/L (136-145); UREA NITROGEN 13 mg/dL (7-18); eGFR NON AFRICAN AMERICAN 76 mL/min (90-120)
[2019-05-03 15:11] LABS: APTT 26.4 SECONDS (22.8-39.4); INR 0.92 (0.85-1.17); PROTIME 12.3 SECONDS (11.6-15.0)
[2019-05-03 15:28] LABS: ALBUMIN 3.6 g/dL (3.4-5.0); ALKALINE PHOSPHATASE 77 U/L (46-116); ALT (SGPT) 23 U/L (10-68); BILIRUBIN - TOTAL 0.46 mg/dL (0.2-1.3); CKMB 0.3 U/L (0.0-3.6); CREATINE KINASE 34 UL (21-215); MAGNESIUM - SERUM 1.6 mg/dL (1.8-2.4); PROTEIN - SERUM 7.9 g/dL (6.4-8.2)
[2019-05-03 15:38] LABS: TROPONIN-I < 0.017 ng/mL (0.000-0.060)
[2019-05-03 17:09] VITALS: BP 150/72
== END 2019-05-03 17:10 | disposition home or self-care (01) ==
LOC: D.ER 13:43
PROVIDERS: Family Medicine
DX: R07.89 Other chest pain (principal); I25.10 Atherosclerotic heart disease of native coronary artery without angina pectoris; E11.9 Type 2 diabetes mellitus without complications; Z79.84 Long term (current) use of oral hypoglycemic drugs; I25.2 Old myocardial infarction; Z95.5 Presence of coronary angioplasty implant and graft; G89.29 Other chronic pain